=== PATIENT | female | born 1995 | race African-American/Black ===

== ENCOUNTER 2016-06-04 19:52 | Emergency (ER) | payer OTHER ==
[2016-06-04 19:59] VITALS: BP 122/75; PULSE 98; TEMP 97.7; BMI 19.6
--- NOTE | 2016-06-04 20:38 | PDOC ---
History of Present Illness - General Chief Complaint: Ear Problem Stated Complaint: EAR PROBLEM Time Seen by Provider: 06/04/16 20:03 History Source: Patient Exam Limitations: No Limitations - History of Present Illness Initial Comments: 06/04/16 20:38 CHIEF COMPLAINT: Ear pain HISTORY OF PRESENT ILLNESS: This is an otherwise healthy 20 year old female who presents for evaluation of three days of bilateral ear pain and decreased hearing. She has an appointment with ENT tomorrow, but the pain was bothering her too much for her to wait. She denies fevers/chills, headache, nausea/ vomiting, or any other symptoms. She has not taken anything for the pain. REVIEW OF SYSTEMS: GENERAL/CONSTITUTIONAL: No fever or chills. No weakness. No weight change. HEAD, EYES, EARS, NOSE AND THROAT: See HPI. CARDIOVASCULAR: No chest pain or palpitations. RESPIRATORY: No cough, wheezing, or shortness of breath. GASTROINTESTINAL: No nausea, vomiting, diarrhea or constipation. GENITOURINARY: No dysuria, frequency, or change in urination. MUSCULOSKELETAL: No joint or muscle swelling or pain. No neck or back pain. SKIN: No rash or easy bruising. NEUROLOGIC: No headache, vertigo, loss of consciousness, or loss of sensation. ALLERGIC/IMMUNOLOGIC: No hives or skin allergy. No latex allergy. PHYSICAL EXAM: GENERAL: The patient is awake, alert, and fully oriented, in no acute distress. ENT: Pupils equal, round and reactive to light, extraocular movements intact, sclera anicteric, conjunctiva clear. Neck supple. TMs pearly mcmillan with good light reflex. No cerumen impaction. Nasal congestion/rhinorrhea. LUNGS: Clear to auscultation bilaterally. Normal excursion. No respiratory distress or use of accessory muscles. CV: RRR, S1/S2, no MRG. Cap refill < 2 sec. ABDOMEN: Soft, non-distended, non-tender. EXTREMITIES: Normal range of motion, no edema. NEUROLOGICAL: Normal speech, normal gait. CN II-XII grossly intact. PSYCH: Normal mood, normal affect. SKIN: Warm, dry, normal turgor, no rashes or lesions noted. Past History - Past Medical History Allergies/Adverse Reactions: Allergies Allergy/AdvReac Type Severity Reaction Status Date / Time No Known Allergies Allergy Verified 06/04/16 19:56 Home Medications: Ambulatory Orders Albuterol Sulfate Inhaler - [Ventolin Hfa Inhaler -] 1 - 2 inh PO PRN PRN #1 inh 01/04/15 Pseudoephedrine HCl [Sudafed] 60 mg PO Q6H #15 tablet 06/04/16 Asthma: Yes Suicide Attempt (Hx): No Other medical history: meningitis - Immunization History Immunization Up to Date: Yes - Psycho/Social/Smoking Cessation Hx Anxiety: No Suicidal Ideation: No Smoking Status: No Smoking History: Never smoked Have you smoked in the past 12 months: No Number of Cigarettes Smoked Daily: 0 Hx Alcohol Use: No Drug/Substance Use Hx: No Substance Use Type: None *Physical Exam - Vital Signs Last Vital Signs Temp Pulse Resp BP Pulse Ox 97.7 F 98 H 18 122/75 100 06/04/16 19:56 06/04/16 19:56 06/04/16 19:56 06/04/16 19:56 06/04/16 19:56 ED Treatment Course - ADDITIONAL ORDERS Additional order review: Laboratory Results 06/04/16 20:00 Urine HCG, Qual Negative Medical Decision Making - Medical Decision Making 06/10/16 09:53 A/P: 20 year old female with bilateral ear pain and congestion. -Motrin for pain -Sudafed for congestion Patient is feeling better and has ENT appointment for tomorrow. *DC/Admit/Observation/Transfer Diagnosis at time of Disposition: Acute ear pain Qualifiers: Laterality: bilateral Qualified Code(s): H92.03 - Otalgia, bilateral - Discharge Dispostion Disposition: HOME Condition at time of disposition: Stable Admit: No - Prescriptions Prescriptions: Pseudoephedrine HCl [Sudafed] 60 mg PO Q6H #15 tablet - Referrals Referrals: Keke Hoang MD [Primary Care Provider] - - Patient Instructions Printed Discharge Instructions: DI for Ear Pain-Adult Additional Instructions: -Take ibuprofen as needed for pain as well as Sudafed as prescribed for congestion -Follow up with ENT as scheduled tomorrow -Return here for any concerning symptoms
[2016-06-04] MEDS ORDERED: PSEUDOEPHEDRINE HCL 60 MG TABLET PO ONE (21:05)
[2016-06-04] MEDS ORDERED: IBUPROFEN 600 MG TABLET (FP) PO ONE ×2 (21:11→21:12)
== END 2016-06-04 21:48 | disposition home or self-care (01) ==
LOC: JERFT 19:52
DX: H92.03 Otalgia, bilateral (principal); J45.909 Unspecified asthma, uncomplicated
CPT/HCPCS: 84703; 99281-25

== ENCOUNTER 2016-07-02 20:30 | Emergency (ER) | payer OTHER ==
[2016-07-02 20:50] VITALS: TEMP 97.8; BMI 18.7
[2016-07-02] MEDS ORDERED: SODIUM CHLORIDE 1,000 ML IV STA ×2 (21:21→23:29)
[2016-07-02] MEDS ORDERED: MAG HYDROX/AL HYDROX/SIMETH 30 ML UNIT-DOSE CUP PO ONE (21:30)
[2016-07-02] MEDS ORDERED: ONDANSETRON 4 MG/2 ML VIAL IVPB ONE (21:30)
[2016-07-02] MEDS ORDERED: ACETAMINOPHEN 1000 MG/100 ML VIAL (NON FORMULARY) IVPB ONE (21:30)
[2016-07-02] MEDS ORDERED: FAMOTIDINE 20 MG/50 ML IVPB 50 ML IVPB ONE ×2 (21:30→22:11)
[2016-07-02] MEDS ORDERED: ONDANSETRON 4 MG/2 ML VIAL ONE (22:06)
[2016-07-02 22:08] LABS: BASOPHIL 0.8 % (0-2.0); EOSINOPHIL 0.9 % (0-4.5); MCH 29.3 pg (25.7-33.7); MCHC 32.7 g/dl (32.0-36.0); MEAN CELL VOLUME 89.4 fl (80-96); MEAN PLT VOLUME 8.9 fl (7.5-11.1); NEUTROPHILS 61.1 % (42.8-82.8); PLATELET COUNT 338 K/MM3 (134-434); RDW 13.5 % (11.6-15.6); WHITE BLOOD COUNT 6.5 K/mm3 (4.0-10.0)
[2016-07-02 22:09] LABS: URINE APPEARANCE CLEAR; URINE BILIRUBIN NEGATIVE (NEGATIVE); URINE COLOR STRAW; URINE GLUCOSE (UA) NEGATIVE (NEGATIVE); URINE KETONE 1+ (NEGATIVE); URINE NITRITE NEGATIVE (NEGATIVE); URINE PROTEIN NEGATIVE (NEGATIVE); URINE UROBILINOGEN NEGATIVE E.U./dl (0.2-1.0)
[2016-07-02] MEDS ORDERED: ACETAMINOPHEN INJECTION 100 ML IVPB ONE (22:11)
--- NOTE | 2016-07-02 22:16 | PDOC ---
History of Present Illness - General History Source: Patient, Family Exam Limitations: No Limitations - History of Present Illness Initial Comments: 07/02/16 22:22 The patient is a 20 year old female, with a significant past medical history of asthma and meningitis, who presents to the emergency department with abdominal pain, nausea vomiting that started today and constipation that began 3 days ago. She describes her abdominal pain as constant and localized around the umbilical region, ranging from mild to moderate, without radiation or modifying factors. She notes that her vomiting is nonbilious and nonbloody. She reports that her last bowel movement was 3 days ago. She states that she is sexually active and uses condoms for contraception. The patient had recent surgery on her right ankle for bone growth, and has been taking Percocet, ibuprofen and benadryl post-opt for the pain. The patient denies chest pain, shortness of breath, headache and dizziness. Denies fever, chills and diarrhea. Denies dysuria, frequency, urgency and hematuria. LMP: 06/12/2016 Allergies: None Past surgical history: Right knee surgery (Right sided DKA) Social history: No alcohol, tobacco or drug use reported <Bk Gutierrez - Last Filed: 07/02/16 22:22> - General History Source: Patient, Parent(s) Exam Limitations: No Limitations <Anurag Fontenot - Last Filed: 07/03/16 01:03> - General Chief Complaint: Pain, Acute Stated Complaint: STOMACH PAIN,VOMITTING Time Seen by Provider: 07/02/16 20:57 Past History <Bk Gutierrez - Last Filed: 07/02/16 22:22> - Past Medical History Asthma: Yes Suicide Attempt (Hx): No - Immunization History Immunization Up to Date: Yes - Psycho/Social/Smoking Cessation Hx Anxiety: No Suicidal Ideation: No Smoking Status: No Smoking History: Never smoked Have you smoked in the past 12 months: No Number of Cigarettes Smoked Daily: 0 Hx Alcohol Use: No Drug/Substance Use Hx: No Substance Use Type: None <Anurag Fontenot - Last Filed: 07/03/16 01:03> - Past Medical History Allergies/Adverse Reactions: Allergies Allergy/AdvReac Type Severity Reaction Status Date / Time No Known Allergies Allergy Verified 07/02/16 20:51 Home Medications: Ambulatory Orders Albuterol Sulfate Inhaler - [Ventolin Hfa Inhaler -] 1 - 2 inh PO PRN PRN #1 inh 01/04/15 Diphenhydramine HCl [Benadryl -] 25 mg PO Q6H 07/02/16 Hydromorphone [Dilaudid -] 4 mg PO Q6H PRN 07/02/16 Oxycodone HCl/Acetaminophen [Percocet 5-325 mg Tablet] 1 tab PO Q6H PRN Acetaminophen [Tylenol] 650 mg PO Q4H PRN #20 tablet 07/03/16 Mag Hydrox/Al Hydrox/Simeth [Mylanta Suspension -] 30 ml PO Q6H PRN #1 bottle Ondansetron HCl [Zofran] 4 mg PO Q6H PRN #15 tablet 07/03/16 Ranitidine HCl [Zantac] 150 mg PO BID PRN #14 tablet 07/03/16 Review of Systems - Review of Systems Able to Perform ROS?: Yes Comments:: 07/02/16 22:22 GENERAL/CONSTITUTIONAL: No fever or chills. No weakness. HEAD, EYES, EARS, NOSE AND THROAT: No change in vision. No ear pain or discharge. No sore throat. CARDIOVASCULAR: No chest pain or shortness of breath RESPIRATORY: No cough, wheezing, or hemoptysis. GASTROINTESTINAL: +Abdominal pain, nausea, vomiting and constipation. No diarrhea GENITOURINARY: No dysuria, frequency, or change in urination. MUSCULOSKELETAL: No joint or muscle swelling or pain. No neck or back pain. SKIN: No rash NEUROLOGIC: No headache, vertigo, loss of consciousness, or change in strength/ sensation. ENDOCRINE: No increased thirst. No abnormal weight change HEMATOLOGIC/LYMPHATIC: No anemia, easy bleeding, or history of blood clots. ALLERGIC/IMMUNOLOGIC: No hives or skin allergy. <Bk Gutierrez - Last Filed: 07/02/16 22:22> *Physical Exam - Vital Signs Last Vital Signs Temp Pulse Resp BP Pulse Ox 97.8 F 116 H 18 121/69 96 07/02/16 20:48 07/02/16 20:48 07/02/16 20:48 07/02/16 20:48 07/02/16 20:48 - Physical Exam Comments: 07/02/16 22:22 GENERAL: Awake, alert, and fully oriented, in no acute distress HEAD: No signs of trauma, normocephalic, atraumatic EYES: PERRLA, EOMI, sclera anicteric, conjunctiva clear ENT: Auricles normal inspection, hearing grossly normal, nares patent, oropharynx clear without exudates. Moist mucosa NECK: Normal ROM, supple, no lymphadenopathy, JVD, or masses LUNGS: No distress, speaks full sentences, clear to auscultation bilaterally HEART: Regular rate and rhythm, normal S1 and S2, no murmurs, rubs or gallops, peripheral pulses normal and equal bilaterally. ABDOMEN: +Tenderness in the epigastric, murphys sign negative. Soft, normoactive bowel sounds. No guarding, no rebound. No masses EXTREMITIES: +Right sided DKA. Normal inspection, Normal range of motion, no edema. No clubbing or cyanosis. NEUROLOGICAL: Cranial nerves II through XII grossly intact. Normal speech, normal gait, no focal sensorimotor deficits SKIN: Warm, Dry, normal turgor, no rashes or lesions noted. <Bk Gutierrez - Last Filed: 07/02/16 22:22> - Vital Signs Last Vital Signs Temp Pulse Resp BP Pulse Ox 97.8 F 116 H 18 121/69 96 07/02/16 20:48 07/02/16 20:48 07/02/16 20:48 07/02/16 20:48 07/02/16 20:48 <Anurag Fontenot - Last Filed: 07/03/16 01:03> ED Treatment Course - LABORATORY CBC & Chemistry Diagram: 07/02/16 22:00 07/02/16 22:00 - ADDITIONAL ORDERS Additional order review: Laboratory Results 07/02/16 22:00 Urine Color Straw Urine Appearance Clear Urine pH 8.0 Ur Specific [place] 1.014 Urine Protein Negative Urine Glucose (UA) Negative Urine Ketones 1+ H Urine Blood 1+ H Urine Nitrite Negative Urine Bilirubin Negative Urine Urobilinogen Negative Ur Leukocyte Esterase Trace H Urine RBC 4 Urine WBC 6 Ur Epithelial Cells Rare Urine Mucus Rare 07/02/16 22:00 RBC 4.33 MCV 89.4 MCHC 32.7 RDW 13.5 MPV 8.9 Neutrophils % 61.1 D Lymphocytes % 29.9 D Monocytes % 7.3 Eosinophils % 0.9 Basophils % 0.8 - Medications Given in the ED: ED Medications Discontinued Medications Generic Name Dose Route Start Last Admin Trade Name Parth PRN Reason Stop Dose Admin Acetaminophen 1,000 mg 07/02/16 21:30 07/02/16 22:21 Ofirmev Injection - IVPB 07/02/16 21:31 1,000 mg ONCE ONE Administration Sodium Chloride 1,000 mls @ 1,000 mls/hr 07/02/16 21:21 07/02/16 22:21 Normal Saline - IV 07/02/16 22:20 1,000 mls/hr ASDIR STA Administration Famotidine/Sodium Chloride 50 mls @ 100 mls/hr 07/02/16 21:30 07/02/16 22:21 Pepcid 20 Mg Premixed Ivpb - IVPB 07/02/16 21:59 100 mls/hr ONCE ONE Administration Ondansetron HCl 4 mg 07/02/16 21:30 07/02/16 22:21 Zofran Injection IVPB 07/02/16 21:31 4 mg ONCE ONE Administration <Bk Gutierrez - Last Filed: 07/02/16 22:22> - LABORATORY CBC & Chemistry Diagram: 07/02/16 22:00 07/02/16 23:44 - ADDITIONAL ORDERS Additional order review: 07/02/16 22:00 RBC 4.33 MCV 89.4 MCHC 32.7 RDW 13.5 MPV 8.9 Neutrophils % 61.1 D Lymphocytes % 29.9 D Monocytes % 7.3 Eosinophils % 0.9 Basophils % 0.8 <Anurag Fontenot - Last Filed: 07/03/16 01:03> Medical Decision Making - Medical Decision Making 07/02/16 22:13 A portion of this note was documented by scribe services under my direction. I have reviewed the details of the note, within reason, and agree with the documentation with the following case summary and management plan written by me. Patient treated in the ED. Nursing notes are reviewed and incorporated into the medical decision-making. Vital signs reviewed. Peripheral IV access obtained by the nurse, laboratory studies are drawn and sent, reviewed and interpreted by myself. Vital Signs Temp Pulse Resp BP Pulse Ox 97.8 F 116 H 18 121/69 96 07/02/16 20:48 07/02/16 20:48 07/02/16 20:48 07/02/16 20:48 07/02/16 20:48 20 year old female with history of R BKA, multiple RLE osteotomy, last OR visit 5 days ago c/ no complications p/w likely food poisoning today. Patient ate some ice cream in the afternoon and subsequently developed epigastric discomfort with several episodes of vomiting. Denies diarrhea or sick contacts. Patient had taken a tablet of percocet (from which she had from surgery) which improved the pain drastically. The patient has NO RUQ pain or RLQ pain. I suspect that the patient has food poisoning. Labs, IVF, medications and reassess. 07/03/16 00:56 CBC, BMP 07/02/16 22:00 07/02/16 23:44 CMP Sodium 140 mmol/L (136-145) 07/02/16 23:44 Potassium 4.2 mmol/L (3.5-5.1) 07/02/16 23:44 Chloride 104 mmol/L (98-107) 07/02/16 23:44 Carbon Dioxide 26 mmol/L (21-32) 07/02/16 23:44 Anion Gap 10 (8-16) 07/02/16 23:44 BUN 9 mg/dL (7-18) D 07/02/16 23:44 Creatinine 0.5 mg/dL (0.55-1.02) L 07/02/16 23:44 Creat Clearance w eGFR > 60 (>60) 07/02/16 23:44 Random Glucose 82 mg/dL (74-106) 07/02/16 23:44 Calcium 8.6 mg/dL (8.5-10.1) 07/02/16 23:44 Total Bilirubin 0.3 mg/dL (0.2-1.0) D 07/02/16 23:44 AST 18 U/L (15-37) D 07/02/16 23:44 ALT 17 U/L (12-78) 07/02/16 23:44 Alkaline Phosphatase 62 U/L (45-117) 07/02/16 23:44 Total Protein 6.9 g/dl (6.4-8.2) 07/02/16 23:44 Albumin 3.3 g/dl (3.4-5.0) L 07/02/16 23:44 Lipase 52 U/L (73-393) L 07/02/16 23:44 Urine Test Results Urine Color Straw 07/02/16 22:00 Urine Appearance Clear 07/02/16 22:00 Urine pH 8.0 (5.0-8.0) 07/02/16 22:00 Ur Specific [place] 1.014 (1.001-1.035) 07/02/16 22:00 Urine Protein Negative (NEGATIVE) 07/02/16 22:00 Urine Glucose (UA) Negative (NEGATIVE) 07/02/16 22:00 Urine Ketones 1+ (NEGATIVE) H 07/02/16 22:00 Urine Blood 1+ (NEGATIVE) H 07/02/16 22:00 Urine Nitrite Negative (NEGATIVE) 07/02/16 22:00 Urine Bilirubin Negative (NEGATIVE) 07/02/16 22:00 Ur Leukocyte Esterase Trace (NEGATIVE) H 07/02/16 22:00 Urine RBC 4 /hpf (0-3) 07/02/16 22:00 Urine WBC 6 /hpf (3-5) 07/02/16 22:00 Ur Epithelial Cells Rare /hpf (FEW) 07/02/16 22:00 Urine Mucus Rare 07/02/16 22:00 07/03/16 00:57 Urine test negative. The patient reports feeling better. I suspect that this is food poisoning. Supportive care. I discussed the physical exam findings, ancillary test results and final diagnoses with the patient. I answered all of the patient's questions. The patient was satisfied with the care received and felt comfortable with the discharge plan and treatment plan. The patient will call their primary care physician within 24 hours to arrange follow-up and will return to the Emergency Department with any new, persistant or worsening symptoms. <Anurag Fontenot - Last Filed: 07/03/16 01:03> *DC/Admit/Observation/Transfer - Attestations Scribe Attestion: 07/02/16 22:22 Documentation prepared by Bk Gutierrez, acting as medical transcriber for Anurag Fontenot MD. <Bk Gutierrez - Last Filed: 07/02/16 22:22> - Discharge Dispostion Admit: No <Anurag Fontenot - Last Filed: 02/02/17 01:03> Diagnosis at time of Disposition: Food poisoning Qualifiers: Encounter type: initial encounter Injury intent: accidental or unintentional Qualified Code(s): T62.91XA - Toxic effect of unspecified noxious substance eaten as food, accidental (unintentional), initial encounter - Discharge Dispostion Disposition: HOME Condition at time of disposition: Improved - Prescriptions Prescriptions: Mag Hydrox/Al Hydrox/Simeth [Mylanta Suspension -] 30 ml PO Q6H PRN #1 bottle PRN Reason: Abdominal Pain Acetaminophen [Tylenol] 650 mg PO Q4H PRN #20 tablet PRN Reason: Pain Ranitidine HCl [Zantac] 150 mg PO BID PRN #14 tablet PRN Reason: Abdominal Pain Ondansetron HCl [Zofran] 4 mg PO Q6H PRN #15 tablet PRN Reason: Nausea - Referrals Referrals: Keke Hoang MD [Primary Care Provider] - - Patient Instructions Printed Discharge Instructions: DI for Food Poisoning Additional Instructions: Take the medications as prescribed. Drink plenty of fluids and follow up. It may take several days before it gets better.
[2016-07-02 22:19] LABS: URINE BLOOD 1+ (NEGATIVE); URINE LEUK ESTERASE TRACE (NEGATIVE)
[2016-07-02 22:20] LABS: URINE MUCUS RARE; URINE RBC 4 /hpf (0-3); URINE WBC 6 /hpf (3-5)
[2016-07-02] MEDS ORDERED: MAG HYDROX/AL HYDROX/SIMETH 30 ML UNIT-DOSE CUP ONE (22:47)
[2016-07-03] MEDS ORDERED: KETOROLAC TROMETHAMINE 30 MG/1 ML VIAL IVPUSH ONE (00:18)
[2016-07-03 00:20] LABS: ALBUMIN 3.3 g/dl (3.4-5.0); ANION GAP 10 (8-16); BILIRUBIN,TOTAL 0.3 mg/dL (0.2-1.0); CALCIUM 8.6 mg/dL (8.5-10.1); CO2 26 mmol/L (21-32); CREATININE 0.5 mg/dL (0.55-1.02); GLUCOSE,RANDOM 82 mg/dL (74-106); SGOT/AST 18 U/L (15-37); SGPT/ALT 17 U/L (12-78); TOT PROT 6.9 g/dl (6.4-8.2)
[2016-07-03 00:21] LABS: ALK PHOS 62 U/L (45-117)
[2016-07-03 01:13] VITALS: BP 110/70; PULSE 92
== END 2016-07-03 01:12 | disposition home or self-care (01) ==
LOC: JER 20:30
DX: T62.91XA Toxic effect of unspecified noxious substance eaten as food, accidental (unintentional), initial encounter (principal); J45.909 Unspecified asthma, uncomplicated; Z86.61 Personal history of infections of the central nervous system
CPT/HCPCS: 36415; 80053; 81003; 81015; 83690; 84703; 85025; 87086; 99284-25

== ENCOUNTER 2016-09-21 18:32 | Emergency (ER) | payer OTHER ==
[2016-09-21 18:45] VITALS: BP 132/68; PULSE 99; TEMP 97.8; BMI 20.4
--- NOTE | 2016-09-21 19:06 | PDOC ---
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 The patient reports she had right knee surgery in June (3 months ago). She has been having pain to her right knee ever since and has not been able to wear her right leg prosthesis secondary to the pain. She states her Orthopedic surgeon told her she should be able to bear weight and use her prosthesis but she is still unable to. She reports the pain for the past hour is more severe than the pain she has on a daily basis. The mother reports her right leg has appeared to be swollen when compared to the left. The patient denies fever, chills, nausea, vomiting. Orthopedist: Dr. Cisse <Geneva Ruffin - Last Filed: 09/21/16 21:53> <Ida Jameson - Last Filed: 09/21/16 22:04> - General Chief Complaint: Pain Stated Complaint: PAIN Time Seen by Provider: 09/21/16 18:48 Past History <Geneva Ruffin - Last Filed: 09/21/16 21:53> - Past Medical History Asthma: Yes Suicide Attempt (Hx): No - Immunization History Immunization Up to Date: Yes - Psycho/Social/Smoking Cessation Hx Anxiety: No Suicidal Ideation: No Smoking Status: No Smoking History: Never smoked Have you smoked in the past 12 months: No Number of Cigarettes Smoked Daily: 0 Information on smoking cessation initiated: No Hx Alcohol Use: No Drug/Substance Use Hx: No Substance Use Type: None <Ida Jameson - Last Filed: 09/21/16 22:04> - Past Medical History Allergies/Adverse Reactions: Allergies Allergy/AdvReac Type Severity Reaction Status Date / Time No Known Allergies Allergy Verified 07/02/16 20:51 Home Medications: Ambulatory Orders Albuterol Sulfate Inhaler - [Ventolin Hfa Inhaler -] 1 - 2 inh PO PRN PRN #1 inh 01/04/15 Naproxen [Naprosyn -] 500 mg PO BID #14 tablet 09/21/16 Review of Systems - Review of Systems Able to Perform ROS?: Yes Comments:: 09/21/16 19:25 CONSTITUTIONAL: Absent: fever, chills, diaphoresis, generalized weakness, malaise, loss of appetite HEENT: Absent: rhinorrhea, nasal congestion, throat pain, throat swelling, difficulty swallowing, mouth swelling, ear pain, eye pain, visual Changes CARDIOVASCULAR: Absent: chest pain, syncope, palpitations, irregular heart rate, lightheadedness , peripheral edema RESPIRATORY: Absent: cough, shortness of breath, dyspnea with exertion, orthopnea, wheezing, stridor, hemoptysis GASTROINTESTINAL: Absent: abdominal pain, abdominal distension, nausea, vomiting, diarrhea, constipation, melena, hematochezia GENITOURINARY: Absent: dysuria, frequency, urgency, hesitancy, hematuria, flank pain, genital pain MUSCULOSKELETAL: +Right knee pain, right knee swelling. Absent: back pain, neck pain SKIN: Absent: rash, itching, pallor NEUROLOGIC: Absent: headache, focal weakness or paresthesias, dizziness, unsteady gait, seizure, mental status changes, bladder or bowel incontinence PSYCHIATRIC: Absent: anxiety, depression, suicidal or homicidal ideation, hallucinations. <Geneva Ruffin - Last Filed: 09/21/16 21:53> *Physical Exam - Vital Signs Last Vital Signs Temp Pulse Resp BP Pulse Ox 97.8 F 99 H 20 132/68 100 09/21/16 18:42 09/21/16 18:42 09/21/16 18:42 09/21/16 18:42 09/21/16 18:42 - Physical Exam Comments: 09/21/16 19:25 GENERAL: Well developed, well nourished. Awake and alert. No acute distress. HEENT: Normocephalic, atraumatic. PERRLA, EOMI. No conjunctival pallor. Sclera are non- icteric. Moist mucous membranes. Oropharynx is clear. NECK: Supple. Full ROM. No JVD. Carotid pulses 2+ and symmetric, without bruits. No thyromegaly. No lymphadenopathy. CARDIOVASCULAR: Regular rate and rhythm. No murmurs, rubs, or gallops. Distal pulses are 2+ and symmetric. PULMONARY: No evidence of respiratory distress. Lungs clear to auscultation bilaterally. No wheezing, rales or rhonchi. ABDOMINAL: Soft. Non-tender. Non-distended. No rebound or guarding. No organomegaly. Normoactive bowel sounds. MUSCULOSKELETAL No CVA tenderness. EXTREMITIES: +Bilateral below the knee amputations. Right patellar ballottement. No cyanosis. No clubbing. SKIN: Warm and dry. Normal capillary refill. No rashes. No jaundice. NEUROLOGICAL: Alert, awake, appropriate. Cranial nerves 2-12 intact. No deficits to light touch and temperature in face, upper extremities and lower extremities. PSYCHIATRIC: Cooperative. Good eye contact. Appropriate mood and affect. <Geneva Ruffin - Last Filed: 09/21/16 21:53> - Vital Signs Last Vital Signs Temp Pulse Resp BP Pulse Ox 97.8 F 99 H 20 132/68 100 09/21/16 18:42 09/21/16 18:42 09/21/16 18:42 09/21/16 18:42 09/21/16 18:42 <Ida Jameson - Last Filed: 09/21/16 22:04> ED Treatment Course - LABORATORY CBC & Chemistry Diagram: 09/21/16 19:18 09/21/16 19:18 <Geneva Ruffin - Last Filed: 09/21/16 21:53> - LABORATORY CBC & Chemistry Diagram: 09/21/16 19:18 09/21/16 19:18 <Ida Jameson - Last Filed: 09/21/16 22:04> Medical Decision Making - Medical Decision Making 09/21/16 21:[address] Cisse via answering service, awaiting call back. 09/21/16 21:53 Dr. Cisse called back, the patients case was discussed. <Geneva Ruffin - Last Filed: 09/21/16 21:53> *DC/Admit/Observation/Transfer - Attestations Scribe Attestion: 09/21/16 19:24 Documentation prepared by Geneva Ruffin, acting as medical chief technician for Ida Jameson MD/. <Geneva Ruffin - Last Filed: 09/21/16 21:53> <Ida Jameson - Last Filed: 09/21/16 22:04> Diagnosis at time of Disposition: Right knee pain Qualifiers: Chronicity: chronic Qualified Code(s): M25.561 - Pain in right knee - Discharge Dispostion Disposition: HOME Condition at time of disposition: Stable - Prescriptions Prescriptions: Naproxen [Naprosyn -] 500 mg PO BID #14 tablet - Referrals Referrals: Keke Hoang MD [Primary Care Provider] - - Patient Instructions Printed Discharge Instructions: DI for Knee Pain Additional Instructions: Please see your orthopedist Dr Benny Cisse tomorrow and follow up with him in his office 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
[2016-09-21] MEDS ORDERED: KETOROLAC TROMETHAMINE 60 MG/2 ML VIAL IM ONE (19:11)
[2016-09-21] MEDS ORDERED: KETOROLAC TROMETHAMINE 60 MG/2 ML VIAL ONE (19:14)
[2016-09-21 19:24] LABS: BASOPHIL 0.5 % (0-2.0); EOSINOPHIL 1.4 % (0-4.5); MCH 29.3 pg (25.7-33.7); MCHC 32.8 g/dl (32.0-36.0); MEAN CELL VOLUME 89.3 fl (80-96); MEAN PLT VOLUME 8.5 fl (7.5-11.1); PLATELET COUNT 316 K/MM3 (134-434); RDW 13.4 % (11.6-15.6); WHITE BLOOD COUNT 6.4 K/mm3 (4.0-10.0)
[2016-09-21] MEDS ORDERED: OXYCODONE/APAP 5/325MG COMBO TABLET PO ONE (19:29)
[2016-09-21] MEDS ORDERED: OXYCODONE/APAP 5/325MG COMBO TABLET ONE (19:32)
[2016-09-21 19:48] LABS: ALBUMIN 3.8 g/dl (3.4-5.0); ANION GAP 10 (8-16); BILIRUBIN,TOTAL 0.2 mg/dL (0.2-1.0); CALCIUM 8.5 mg/dL (8.5-10.1); CO2 27 mmol/L (21-32); COCKROFT - GAULT 138.7965; CREATININE 0.5 mg/dL (0.55-1.02); GLUCOSE,RANDOM 91 mg/dL (74-106); SGOT/AST 10 U/L (15-37); SGPT/ALT 18 U/L (12-78); TOT PROT 7.6 g/dl (6.4-8.2)
[2016-09-21 19:49] LABS: ALK PHOS 74 U/L (45-117)
[2016-09-21 20:16] LABS: URINE APPEARANCE CLEAR; URINE BILIRUBIN NEGATIVE (NEGATIVE); URINE COLOR STRAW; URINE GLUCOSE (UA) NEGATIVE (NEGATIVE); URINE KETONE NEGATIVE (NEGATIVE); URINE NITRITE NEGATIVE (NEGATIVE); URINE PROTEIN NEGATIVE (NEGATIVE); URINE UROBILINOGEN NEGATIVE E.U./dl (0.2-1.0)
[2016-09-21 20:20] LABS: URINE BLOOD 3+ (NEGATIVE); URINE LEUK ESTERASE TRACE (NEGATIVE)
[2016-09-21 20:21] LABS: URINE RBC 1 /hpf (0-3); URINE WBC 5 /hpf (3-5)
== END 2016-09-21 22:05 | disposition home or self-care (01) ==
LOC: JER 18:32
PROC: 3E0233Z Introduction of Anti-inflammatory into Muscle, Percutaneous Approach (ICD-10-PCS; principal; 2016-09-21)
DX: G89.28 Other chronic postprocedural pain (principal); Z89.512 Acquired absence of left leg below knee; Z89.511 Acquired absence of right leg below knee
CPT/HCPCS: 36415; 73562-TC-RT; 80053; 81003; 81015; 84703; 85025; 96372; 99282-25

== ENCOUNTER 2016-09-24 12:02 | Emergency (ER) | payer OTHER ==
[2016-09-24 12:20] VITALS: BP 127/85; TEMP 98.3; BMI 23.0
--- NOTE | 2016-09-24 12:23 | PDOC ---
History of Present Illness - General History Source: Patient, Parent(s), Family Exam Limitations: No Limitations - History of Present Illness Initial Comments: 09/24/16 12:29 The patient is a 20-year-old woman, accompanied by mother, with a significant past medical history of meningitis (as a 7-month-old); complicated by bilateral below the knee amputations) and mild intermittent asthma (required hospitalizations as a child) who presents to the emergency department via EMS for further evaluation of nausea, vomiting and diarrhea within the pats 24 hours. Her symptoms started approximately 2-3 days ago, with generalized body aches with associated chills. She ultimately developed chest congestion and was evaluated by her PMD, who diagnosed her with an upper respiratory infection and she was started on a Azythromycin (first dose started yesterday). She now reports experiencing nausea, vomiting, diarrhea with associated intermittent abdominal cramping and chest tightness. She was given a Nebulizer treatment en route to the ED, which helped mildly alleviate her chest tightness. She admits that a cold and seasonal changes, can exacerbated her asthma (last asthma exacerbation was 3 months ago; no hospitalizations;intubations). No fever, weakness No lightheadedness, dizziness, headaches, visual chnages, neck pain No urinary complaints No shortness of breath Allergies: No Known Drug Allergies Past Surgical History: Bilateral BKA Social History: Never smoked. No ETOH and recreational drug use. Primary Care Physician: Keke Plaza W[employer] MAIN INSPECTOR <Beatrice Vee - Last Filed: 09/24/16 13:08> <Merrick Castillo - Last Filed: 09/24/16 15:13> - General Chief Complaint: Nausea/Vomiting Stated Complaint: Shortness of Breath Time Seen by Provider: 09/24/16 12:18 Past History <Beatrice Vee - Last Filed: 09/24/16 13:08> - Past Medical History Asthma: Yes Suicide Attempt (Hx): No - Immunization History Immunization Up to Date: Yes - Psycho/Social/Smoking Cessation Hx Anxiety: No Suicidal Ideation: No Smoking Status: No Smoking History: Never smoked Have you smoked in the past 12 months: No Number of Cigarettes Smoked Daily: 0 Information on smoking cessation initiated: No Hx Alcohol Use: No Drug/Substance Use Hx: No Substance Use Type: None <Merrick Castillo - Last Filed: 09/24/16 15:13> - Past Medical History Allergies/Adverse Reactions: Allergies Allergy/AdvReac Type Severity Reaction Status Date / Time No Known Allergies Allergy Verified 07/02/16 20:51 Home Medications: Ambulatory Orders Methylprednisolone [Medrol Dose Reggie] 4 mg PO ASDIR #21 tablet 09/24/16 Ondansetron [Zofran *Odt*] 8 mg SL BID PRN #10 od.tablet 09/24/16 Review of Systems - Review of Systems Constitutional: Yes: Chills. No: Fever HEENTM: No: Nose Congestion Respiratory: Yes: Cough, Shortness of Breath Cardiac (ROS): Yes: Chest Pain ABD/GI: Yes: Diarrhea, Nausea, Vomiting : No: Dysuria Integumentary: No: Rash All Other Systems: Reviewed and Negative <Merrick Castillo - Last Filed: 09/24/16 15:13> *Physical Exam - Vital Signs Last Vital Signs Temp Pulse Resp BP Pulse Ox 98.3 F 88 16 127/85 99 09/24/16 12:17 09/24/16 12:17 09/24/16 12:17 09/24/16 12:17 09/24/16 12:17 - Physical Exam Comments: 09/24/16 12:30 GENERAL: The patient is awake, alert, and fully oriented, in no acute distress. HEAD: Normal with no signs of trauma. EYES: Pupils equal, round and reactive to light, extraocular movements intact, sclera anicteric, conjunctiva clear with no pallor. ENT: Ears normal, nares patent, oropharynx clear without exudates. Moist mucous membranes. NECK: Normal range of motion, supple without lymphadenopathy, JVD, or masses. LUNGS: Breath sounds equal, clear to auscultation bilaterally. No wheeze/ crackles. HEART: Regular rate and rhythm, normal S1 and S2 without murmur or rub. ABDOMEN: Soft/nontender/nondistended. BS wnl. No guarding or rebound. No palpable masses. No hepatosplenomegaly. EXTREMITIES: Bilateral BKA with prosthetics in place. NEUROLOGICAL: Cranial nerves II through XII grossly intact. Normal speech. PSYCH: Normal mood, normal affect. SKIN: Warm, Dry, normal turgor, no rashes or lesions noted. <MariuszBeatrice - Last Filed: 09/24/16 13:08> - Vital Signs Last Vital Signs Temp Pulse Resp BP Pulse Ox 98.3 F 88 16 127/85 99 09/24/16 12:17 09/24/16 12:17 09/24/16 12:17 09/24/16 12:17 09/24/16 12:17 <Merrick Castillo - Last Filed: 09/24/16 15:13> Heart Score/ECG Review #1 ECG reviewed & interpreted by me at: 13:27 General ECG Interpretation: Sinus Rhythm (sinus arrhythmia v. APC), Normal Rate (74), Normal Intervals (qtc 432), No acute ischemic changes Compared to previous ECG there are: No significant change (c/w 02/04/16) <Merrick Castillo - Last Filed: 09/24/16 15:13> ED Treatment Course - LABORATORY CBC & Chemistry Diagram: 09/24/16 12:55 09/24/16 12:55 <MariuszBeatrice - Last Filed: 09/24/16 13:08> - LABORATORY CBC & Chemistry Diagram: 09/24/16 12:55 09/24/16 12:55 <Merrick Castillo - Last Filed: 09/24/16 15:13> Medical Decision Making - Medical Decision Making 09/24/16 12:40 A portion of this note was documented by scribe services under my direction. I have reviewed the details of the note, within reason, and agree with the documentation with the following case summary and management plan written by me. 20-year-old female with history of meningitis as a 7-month-old, complicated by bilateral BKA, otherwise healthy with mild intermittent asthma presents with nausea/vomiting/diarrhea over the last 24 hours in the setting of asthma exacerbation in the setting of viral syndrome. Began with body aches and chills 48 hours ago, started developing chest congestion for which her primary physician prescribed azithromycin, first dose yesterday. Now with nonbloody/ nonbilious vomiting and diarrhea without persistent abdominal pain. No recent travel, no sick contacts, no diet change. Vital signs as noted. Well-appearing, seated up in stretcher, speaking full sentences. Symmetric breath sounds without wheezing or accessory muscle use or prolonged expiration. Status post nebulizer by EMS. Abdomen is soft/nontender/nondistended. Bilateral BKA with prosthetics in place Healthy 20-year-old female with likely viral syndrome resulting in mild asthma exacerbation and now likely gastroenteritis. No red flags on history or physical exam, her abdominal exam is benign. Will check basic labs and urine Chest x-ray Declines nebulizers, has no respiratory distress at this time IV fluid hydration, antiemetics, antacid Reassess 09/24/16 13:40 Labs are within normal limits, no leukocytosis, normal lipase and LFTs. Awaiting urine for chest x-ray, feels better after meds. 09/24/16 15:09 Chest x-ray consistent with asthma, no infiltrate to suggest pneumonia. Patient feels well, ambulating comfortably, tolerating by mouth, wants to go home. Mom at bedside, they understand return criteria. <Merrick Castillo - Last Filed: 09/24/16 15:13> *DC/Admit/Observation/Transfer - Attestations Scribe Attestion: 09/24/16 12:30 Documentation prepared by Beatrice Vee, acting as medical economics consultant for Merrick Castillo MD. <Beatrice Vee - Last Filed: 09/24/16 13:08> <Merrick Castillo - Last Filed: 09/24/16 15:13> Diagnosis at time of Disposition: Gastroenteritis, Asthma exacerbation - Discharge Dispostion Disposition: HOME Condition at time of disposition: Improved - Prescriptions Prescriptions: Methylprednisolone [Medrol Dose Reggie] 4 mg PO ASDIR #21 tablet Ondansetron [Zofran *Odt*] 8 mg SL BID PRN #10 od.tablet PRN Reason: Nausea - Referrals Referrals: Keke Hoang MD [Primary Care Provider] - - Patient Instructions Printed Discharge Instructions: DI for Viral Gastroenteritis -- Adult, DI for Asthma -- Adult Additional Instructions: Activity as tolerated. Stay hydrated. Blood tests showed no acute abnormalities. Your vomiting/diarrhea is likely due to a viral infection. A chest xray shows no pneumonia. Speak to your primary doctor about whether he/ she really wants you on antibiotics. Take medrol dose pack as prescribed for asthma exacerbation. You should follow up with your primary doctor as soon as possible regarding today's emergency department visit. Return to the emergency department for any new or concerning symptoms, particularly persistent vomiting or diarrhea or dehydration, fevers or chills, difficulty breathing, abdominal pain.
[2016-09-24] MEDS ORDERED: ONDANSETRON 4 MG/2 ML VIAL IVPB ONE (12:34)
[2016-09-24] MEDS ORDERED: SODIUM CHLORIDE 1,000 ML IV ONE (12:34)
[2016-09-24] MEDS ORDERED: FAMOTIDINE 20 MG/50 ML IVPB 50 ML IVPB ONE ×2 (12:34→12:47)
[2016-09-24] MEDS ORDERED: ONDANSETRON 4 MG/2 ML VIAL ONE (12:47)
[2016-09-24 13:05] LABS: EOSINOPHIL 1.5 % (0-4.5); MCH 28.7 pg (25.7-33.7); MCHC 31.7 g/dl (32.0-36.0); MEAN CELL VOLUME 90.7 fl (80-96); MEAN PLT VOLUME 8.9 fl (7.5-11.1); PLATELET COUNT 303 K/MM3 (134-434); WHITE BLOOD COUNT 5.3 K/mm3 (4.0-10.0)
[2016-09-24 13:30] LABS: ALBUMIN 3.6 g/dl (3.4-5.0); ANION GAP 13 (8-16); CALCIUM 9.2 mg/dL (8.5-10.1); CO2 25 mmol/L (21-32); CREATININE 0.5 mg/dL (0.55-1.02); GLUCOSE,RANDOM 79 mg/dL (74-106); SGPT/ALT 20 U/L (12-78)
[2016-09-24 13:31] LABS: ALK PHOS 72 U/L (45-117); BILIRUBIN,TOTAL 0.4 mg/dL (0.2-1.0); TOT PROT 7.3 g/dl (6.4-8.2)
[2016-09-24 13:35] LABS: SGOT/AST 15 U/L (15-37)
[2016-09-24 15:31] VITALS: PULSE 77
--- NOTE | 2016-09-25 13:31 | EKG ---
Test Reason : Blood Pressure : / mmHG Vent. Rate : 074 BPM Atrial Rate : 074 BPM P-R Int : 174 ms QRS Dur : 092 ms QT Int : 390 ms P-R-T Axes : 065 051 008 degrees QTc Int : 432 ms SINUS RHYTHM WITH MARKED SINUS ARRHYTHMIA OTHERWISE NORMAL ECG WHEN COMPARED WITH ECG OF 04-FEB-2016 17:08, CRITERIA FOR ANTEROSEPTAL INFARCT ARE NO LONGER PRESENT Confirmed by RUSS REECE, DAVE ([id number]) on 09/25/2016 1:30:37 PM Referred By: Confirmed By:DAVE SOLANO MD
== END 2016-09-24 15:32 | disposition home or self-care (01) ==
LOC: JER 12:02
PROC: 3E033GC Introduction of Other Therapeutic Substance into Peripheral Vein, Percutaneous Approach (ICD-10-PCS; principal; 2016-09-24)
DX: J45.901 Unspecified asthma with (acute) exacerbation (principal); K52.9 Noninfective gastroenteritis and colitis, unspecified; Z89.512 Acquired absence of left leg below knee; Z89.511 Acquired absence of right leg below knee; Z86.61 Personal history of infections of the central nervous system
CPT/HCPCS: 36415; 71020-TC; 80053; 83690; 84703; 85025; 93005; 93010; 96365; 96375; 99283-25

== ENCOUNTER 2016-12-01 13:08 | Emergency (ER) | payer OTHER ==
[2016-12-01 13:14] VITALS: TEMP 98.6
[2016-12-01 13:54] LABS: URINE APPEARANCE CLEAR; URINE BILIRUBIN NEGATIVE (NEGATIVE); URINE BLOOD NEGATIVE (NEGATIVE); URINE COLOR COLORLESS; URINE GLUCOSE (UA) NEGATIVE (NEGATIVE); URINE KETONE NEGATIVE (NEGATIVE); URINE NITRITE NEGATIVE (NEGATIVE); URINE PROTEIN NEGATIVE (NEGATIVE); URINE UROBILINOGEN NEGATIVE E.U./dl (0.2-1.0)
[2016-12-01 13:55] LABS: URINE LEUK ESTERASE TRACE (NEGATIVE)
[2016-12-01 13:56] LABS: URINE RBC <1 /hpf (0-3); URINE WBC 1 /hpf (3-5)
[2016-12-01] MEDS ORDERED: ACETAMINOPHEN 325 MG TABLET (FP) PO ONE (14:39)
--- NOTE | 2016-12-01 14:39 | PDOC ---
History of Present Illness - General Chief Complaint: Pain Stated Complaint: ABD PAIN (8 WKS ) Time Seen by Provider: 12/01/16 13:29 History Source: Patient - History of Present Illness Timing/Duration: reports: constant Quality: reports: cramping Abdominal Pain Onset Location: reports: suprapubic Past History - Past Medical History Allergies/Adverse Reactions: Allergies Allergy/AdvReac Type Severity Reaction Status Date / Time No Known Allergies Allergy Verified 12/01/16 13:09 Home Medications: Ambulatory Orders Ondansetron [Zofran *Odt*] 8 mg SL BID PRN #10 od.tablet 09/24/16 Cmb#95/Iron/FA/Dha [ + Dha Combo Pack] 1 each PO DAILY Pyridoxine HCl [Vitamin B-6] 100 mg PO DAILY 12/01/16 Asthma: Yes Suicide Attempt (Hx): No Seizures: Yes (HYPO) Other medical history: HX OF MENINGITIS AT 7 MONTH OLD - Reproductive History Is Patient Now?: Yes (#): 2 Para: 0 - Immunization History Immunization Up to Date: Yes - Psycho/Social/Smoking Cessation Hx Anxiety: No Suicidal Ideation: No Smoking Status: No Smoking History: Never smoked Have you smoked in the past 12 months: No Number of Cigarettes Smoked Daily: 0 Information on smoking cessation initiated: No Hx Alcohol Use: No Drug/Substance Use Hx: No Substance Use Type: None Review of Systems - Review of Systems Constitutional: No: Chills, Fever ABD/GI: Yes: Abdominal cramping. No: Nausea, Vomiting : No: Dysuria *Physical Exam - Vital Signs Last Vital Signs Temp Pulse Resp BP Pulse Ox 98.6 F 126 H 18 130/73 100 12/01/16 13:10 12/01/16 13:10 12/01/16 13:10 12/01/16 13:10 12/01/16 13:10 - Physical Exam General Appearance: Yes: Appropriately Dressed. No: Apparent Distress HEENT: positive: Normal Voice Neck: positive: Supple Respiratory/Chest: negative: Respiratory Distress Female Pelvic Exam: positive: normal external exam, cervical os closed, normal adnexa. negative: CMT, discharge, lesions, adnexal tenderness, vaginal bleeding Gastrointestinal/Abdominal: positive: Soft. negative: Tender Musculoskeletal: negative: CVA Tenderness Extremity: positive: Normal Inspection Integumentary: positive: Dry, Warm Neurologic: positive: Fully Oriented, Alert, Normal Mood/Affect ED Treatment Course - ADDITIONAL ORDERS Additional order review: Laboratory Results 12/01/16 13:33 Urine Color Colorless Urine Appearance Clear Urine pH 7.0 Urine Protein Negative Urine Glucose (UA) Negative Urine Ketones Negative Urine Blood Negative Urine Nitrite Negative Urine Bilirubin Negative Urine Urobilinogen Negative Ur Leukocyte Esterase Trace H Urine RBC <1 Urine WBC 1 Ur Epithelial Cells Rare - RADIOLOGY Radiology Studies Ordered: Category Date Time Status TRANSVAGINAL ULTRASOUND US [US] Stat Ultrasound 12/01/16 14:13 Ordered Medical Decision Making - Medical Decision Making 12/01/16 14:16 20 yo F, s/p b/l LE amputations 2/2 complication of meningitis in childhood, (1 elec AB), ~8 weeks and p/w lower abd pain that started today. No vag bleed or dysuria. Has not had any care, including US, as of yet See exam 1st trimester pain Stable w/ benign abd and unremarkable pelvic exam -pain control -ua/beta -US 12/01/16 14:51 12/01/16 16:31 12/01/16 16:35 +IUP at ~10 weeks w/ FHR. Ua neg for infxn. Pt stable for dc w/ OB f/u. Given report of US *DC/Admit/Observation/Transfer Diagnosis at time of Disposition: Chest pain Qualifiers: Chest pain type: unspecified Qualified Code(s): R07.9 - Chest pain, unspecified - Discharge Dispostion Disposition: HOME Condition at time of disposition: Fair Admit: Yes - Referrals Referrals: Keke Hoang MD [Primary Care Provider] - - Patient Instructions Printed Discharge Instructions: Managing Symptoms of Additional Instructions: Your ultrasound shows an intrauterine at approximately 10 weeks 5 days with a heart rate. Your beta was over 200,000 today. There are no signs of infection in your urine. Please continue to follow up with her OB
[2016-12-01] MEDS ORDERED: ACETAMINOPHEN 325 MG TABLET (FP) ONE (14:56)
[2016-12-01 16:45] VITALS: BP 115/63; PULSE 97
== END 2016-12-01 16:36 | disposition home or self-care (01) ==
LOC: JER 13:08
DX: O26.891 Other specified pregnancy related conditions, first trimester (principal); R10.30 Lower abdominal pain, unspecified; R07.9 Chest pain, unspecified; Z3A.10 10 weeks gestation of pregnancy; Z89.512 Acquired absence of left leg below knee; Z89.511 Acquired absence of right leg below knee
CPT/HCPCS: 36415; 76817-TC; 81003; 81015; 84702; 87086; 99282-25

== ENCOUNTER 2017-01-20 06:24 | Emergency (ER) | payer OTHER ==
[2017-01-20 06:39] VITALS: TEMP 97.7; BMI 18.8
[2017-01-20] MEDS ORDERED: ALBUTEROL SO4 0.042% IH SOL 1.25 MG/3 ML VIAL.NEB NEB ONE (06:57)
[2017-01-20] MEDS ORDERED: ALBUTEROL SO4 0.083% IH SOL 2.5 MG/3 ML VIAL.NEB. NEB ONE (07:00)
--- NOTE | 2017-01-20 07:06 | PDOC ---
History of Present Illness - General Chief Complaint: Shortness of Breath Stated Complaint: 4 MTHS PREG/TROUBLE BREATHING Time Seen by Provider: 01/20/17 06:35 History Source: Patient, Parent(s) (Mother) Exam Limitations: No Limitations - History of Present Illness Initial Comments: 01/20/17 06:59 21yo Female patient 16 weeks preg w/ PmHx: Asthma, hyperthyroidism, bilateral BKA presents to ED c/o difficulty breathing while sleeping. Patient states she woke up out of her sleep when symptoms began. She states she did not use her rescue inhaler because she was not sure if it is safe during . Patient denies abd pain, vaginal bleeding, dysuria, hematuria, n/v/d, rash, fever or any other complaints at this time. [employer]/OB - Chelsea Gaspar. Past History - Travel Traveled outside of the country in the last 30 days: No Close contact w/someone who was outside of country & ill: No - Past Medical History Allergies/Adverse Reactions: Allergies Allergy/AdvReac Type Severity Reaction Status Date / Time No Known Allergies Allergy Verified 01/20/17 06:32 Home Medications: Ambulatory Orders Methimazole [Tapazole -] 5 mg PO TID 01/20/17 Asthma: Yes Suicide Attempt (Hx): No Seizures: Yes (HYPO) Thyroid Disease: Yes (Hyperthyroid) - Reproductive History Is Patient Now?: Yes (states 16 weeks) (#): 1 Para: 0 Cervical CA: No Dysfunctional Uterine Bleeding: No Ectopic : No Endometrial CA: No Polycystic Ovaries: No Therapeutic (s) & number: No Tubal Ligation: No Spontaneous : 0 - Immunization History Immunization Up to Date: Yes - Psycho/Social/Smoking Cessation Hx Anxiety: No Suicidal Ideation: No Smoking Status: No Smoking History: Never smoked Have you smoked in the past 12 months: No Number of Cigarettes Smoked Daily: 0 Information on smoking cessation initiated: No Hx Alcohol Use: No Drug/Substance Use Hx: No Substance Use Type: None Review of Systems - Review of Systems Able to Perform ROS?: Yes Is the patient limited French proficient: No Respiratory: Yes: Shortness of Breath All Other Systems: Reviewed and Negative *Physical Exam - Vital Signs Last Vital Signs Temp Pulse Resp BP Pulse Ox 97.7 F 68 18 116/71 100 01/20/17 06:33 01/20/17 06:33 01/20/17 06:33 01/20/17 06:33 01/20/17 06:33 - Physical Exam General Appearance: Yes: Nourished, Appropriately Dressed. No: Apparent Distress, Mild Distress, Moderate Distress, Severe Distress HEENT: positive: EOMI, BARRY, Normal ENT Inspection, Normal Voice, Symmetrical, TMs Normal, Pharynx Normal. negative: Tonsillar Exudate, Tonsillar Erythema, Rhinorrhea, Sinus Tenderness, TM Bulging, TM Dull, TM Erythema Neck: positive: Trachea midline, Supple. negative: Stridor, Lymphadenopathy (R) , Lymphadenopathy (L) Respiratory/Chest: positive: Other (Coarse posterior lung sounds heard.). negative: Lungs Clear, Normal Breath Sounds, Respiratory Distress Cardiovascular: positive: Regular Rhythm, Regular Rate Gastrointestinal/Abdominal: positive: Normal Bowel Sounds, Soft, Protuberent ( 16 weeks .) Musculoskeletal: positive: Normal Inspection. negative: CVA Tenderness, Decreased Range of Motion, Vertebral Tenderness Extremity: positive: Normal Capillary Refill, Normal Inspection, Normal Range of Motion. negative: Pedal Edema, Swelling, Calf Tenderness, Erythema, Inflammation Integumentary: positive: Normal Color, Dry, Warm Neurologic: positive: head of cytogenetics II-XII NML intact, Fully Oriented, Alert, Normal Mood/ Affect, Normal Response, Motor Strength 5/5 Medical Decision Making - Medical Decision Making 01/20/17 07:08 Report given to Chaz WHARTON. Follow up urinalysis, re-evaluation, and disposition. *DC/Admit/Observation/Transfer - Referrals Referrals: Keke Hoang MD [Primary Care Provider] -
[2017-01-20] MEDS ORDERED: predniSONE 20 MG TABLET (UD) PO ONE (07:20)
--- NOTE | 2017-01-20 07:20 | PDOC ---
*Physical Exam - Vital Signs Last Vital Signs Temp Pulse Resp BP Pulse Ox 97.7 F 68 18 116/71 100 01/20/17 06:33 01/20/17 06:33 01/20/17 06:33 01/20/17 06:33 01/20/17 06:33 - Physical Exam General Appearance: Yes: Nourished, Appropriately Dressed. No: Apparent Distress HEENT: positive: Normal Voice Neck: positive: Supple Respiratory/Chest: positive: Normal Breath Sounds. negative: Respiratory Distress, Wheezing Integumentary: positive: Dry, Warm Neurologic: positive: Fully Oriented, Alert, Normal Mood/Affect ED Treatment Course - Medications Given in the ED: ED Medications Discontinued Medications Generic Name Dose Route Start Last Admin Trade Name Freq PRN Reason Stop Dose Admin Albuterol Sulfate 1 amp 01/20/17 06:57 01/20/17 07:02 Ventolin 0.042trength) - NEB 01/20/17 06:58 1 amp ONCE ONE Administration Medical Decision Making - Medical Decision Making 01/20/17 07:12 Patient signed out to me at 7 AM Patient is a 21-year-old female, approximately 16 weeks with history of asthma, hyperthyroidism and bilateral BKA secondary to complications of meningitis in childhood, presents with shortness of breath that woke her up from sleep this a.m. Denies chest pain or palpitations. Patient, not certain if shortness of breath is her asthma and states she did not use her rescue inhaler because she was not sure if it was safe in . As per prior team , patient stable with possible coarse breath sounds. Currently receiving nebulizers. Will give steroids as well as per d/w ED attg. Pending reassessment 01/20/17 07:19 01/20/17 07:20 01/20/17 09:29 On reassessment, patient continues to complain of feeling winded and became short of breath after walking in ED. No wheezing, chest pain or palpitations and vitals are stable at this time. Patient states she's never been admitted for her asthma and no history of intubations. Very low suspicion for PE as discussed with ED attending. Plan is to discuss with hospitalist and admit. Will also inform patient's OB 01/20/17 10:50 Admitting team came down to evaluate pt, states pt's ambulatory sat remained 100 % on RA throughout and pt's lungs remains clear on reassessment. Pt now reports to me that she feels well enough to to go home. Admitting team had contacted pt' s OB but was unable to get MD on phone. Pt states she will f/u with MD when she gets home. Sent home w/ rx for short steroid burst as d/w ED attg 01/20/17 11:47 *DC/Admit/Observation/Transfer Diagnosis at time of Disposition: Asthma exacerbation - Discharge Dispostion Disposition: HOME Condition at time of disposition: Improved - Prescriptions Prescriptions: Prednisone [Deltasone -] 40 mg PO UTDICT #6 tablet - Referrals Referrals: Keke Hoang MD [Primary Care Provider] - - Patient Instructions Printed Discharge Instructions: Asthma -- Adult Additional Instructions: Take medication as directed and follow up with your OB tomorrow Return to ED for worsening of symptoms - Post Discharge Activity
[2017-01-20] MEDS ORDERED: predniSONE 20 MG TABLET (UD) ONE (07:24)
[2017-01-20] MEDS ORDERED: ALBUTEROL SO4 2.5/IPRATROPIUM 0.5 INH SOL 3 ML VIAL.NEB. NEB ONE ×2 (08:22→08:24)
[2017-01-20 11:15] VITALS: BP 109/63; PULSE 90
== END 2017-01-20 11:15 | disposition home or self-care (01) ==
LOC: JER 06:24
PROC: 3E0F7GC Introduction of Other Therapeutic Substance into Respiratory Tract, Via Natural or Artificial Opening (ICD-10-PCS; principal; 2017-01-20)
DX: O26.892 Other specified pregnancy related conditions, second trimester (principal); J45.901 Unspecified asthma with (acute) exacerbation; O99.282 Endocrine, nutritional and metabolic diseases complicating pregnancy, second trimester; Z3A.16 16 weeks gestation of pregnancy
CPT/HCPCS: 94640; 99282-25

== ENCOUNTER 2017-03-17 18:48 | Emergency (ER) | payer OTHER ==
[2017-03-17 18:53] VITALS: TEMP 100.6; BMI 19.8
--- NOTE | 2017-03-17 19:31 | PDOC ---
History of Present Illness - General Chief Complaint: Palpitations Stated Complaint: PALPITATIONS Time Seen by Provider: 03/17/17 19:08 Past History - Past Medical History Allergies/Adverse Reactions: Allergies Allergy/AdvReac Type Severity Reaction Status Date / Time No Known Allergies Allergy Verified 03/17/17 18:49 Home Medications: Ambulatory Orders Vitamins (Sjr) - 1 tab PO DAILY 03/13/17 Acetaminophen [Tylenol] 650 mg PO TID #30 tablet 03/17/17 Asthma: Yes Seizures: Yes (HYPO) Thyroid Disease: Yes (HYPER.) - Reproductive History (#): 1 Para: 0 Cervical CA: No Dysfunctional Uterine Bleeding: No Ectopic : No Endometrial CA: No Polycystic Ovaries: No Therapeutic (s) & number: No Tubal Ligation: No Spontaneous : 0 - Immunization History Immunization Up to Date: Yes - Suicide/Smoking/Psychosocial Hx Smoking Status: No Smoking History: Never smoked Have you smoked in the past 12 months: No Number of Cigarettes Smoked Daily: 0 Hx Alcohol Use: No Drug/Substance Use Hx: No Substance Use Type: None *Physical Exam - Vital Signs Last Vital Signs Temp Pulse Resp BP Pulse Ox 100.6 F H 93 H 18 108/61 99 03/17/17 18:48 03/17/17 20:51 03/17/17 20:51 03/17/17 20:51 03/17/17 20:51 ED Treatment Course - ADDITIONAL ORDERS Additional order review: Laboratory Results 03/17/17 19:51 Urine Color Straw Urine Appearance Clear Urine pH 8.0 Ur Specific [place] 1.010 Urine Protein Negative Urine Glucose (UA) Negative Urine Ketones Negative Urine Blood Negative Urine Nitrite Negative Urine Bilirubin Negative Urine Urobilinogen Negative Ur Leukocyte Esterase 3+ H Urine RBC 0-2 Urine WBC 5-10 Urine Bacteria Few 03/17/17 19:43 Influenza Types A,B Antigen (KALE) - Final Nasopharyngeal Swab - Final - Medications Given in the ED: ED Medications Discontinued Medications Generic Name Dose Route Start Last Admin Trade Name Freq PRN Reason Stop Dose Admin Acetaminophen 650 mg 03/17/17 20:55 03/17/17 20:55 Tylenol - PO 03/17/17 20:56 650 mg NOW ONE Administration Medical Decision Making - Medical Decision Making 03/18/17 00:53 this pt was seen and evaluated by the mid level provider and I agree with her assessment and management of the case *DC/Admit/Observation/Transfer Diagnosis at time of Disposition: Palpitations - Discharge Dispostion Disposition: HOME Condition at time of disposition: Stable - Prescriptions Prescriptions: Acetaminophen [Tylenol] 650 mg PO TID #30 tablet - Referrals Referrals: Jonathan Chaidez MD [Staff Physician] - Keke Hoang MD [Primary Care Provider] - - Patient Instructions Printed Discharge Instructions: DI for Palpitations Additional Instructions: Increase fluids Follow up with your physician and the Project Director listed on your discharge Return to the ER for severe/persistent/worsening symptoms
[2017-03-17 20:09] LABS: URINE APPEARANCE CLEAR; URINE BILIRUBIN NEGATIVE (NEGATIVE); URINE BLOOD NEGATIVE (NEGATIVE); URINE COLOR STRAW; URINE GLUCOSE (UA) NEGATIVE (NEGATIVE); URINE KETONE NEGATIVE (NEGATIVE); URINE NITRITE NEGATIVE (NEGATIVE); URINE PROTEIN NEGATIVE (NEGATIVE); URINE UROBILINOGEN NEGATIVE mg/dL (0.2-1.0)
--- NOTE | 2017-03-17 20:41 | PDOC ---
History of Present Illness - General Chief Complaint: Palpitations Stated Complaint: PALPITATIONS Time Seen by Provider: 03/17/17 19:08 History Source: Patient Exam Limitations: No Limitations - History of Present Illness Initial Comments: 03/18/17 01:41 PMD: Dr. Davies from the clinic Telephone number: 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 Patient states she had chest palpitations 12 hours ago while watching TV in a supine position. Palpitations lasted for approximately 1 minute subsided on its own. No alleviating or exacerbating factors. No history of similar symptoms. Patient denies ear/nose/throat pain. Past History - Past Medical History Allergies/Adverse Reactions: Allergies Allergy/AdvReac Type Severity Reaction Status Date / Time No Known Allergies Allergy Verified 03/17/17 18:49 Home Medications: Ambulatory Orders Vitamins (Sjr) - 1 tab PO DAILY 03/13/17 Acetaminophen [Tylenol] 650 mg PO TID #30 tablet 03/17/17 Asthma: Yes Seizures: Yes (HYPO) Thyroid Disease: Yes (HYPER.) - Reproductive History (#): 1 Para: 0 Cervical CA: No Dysfunctional Uterine Bleeding: No Ectopic : No Endometrial CA: No Polycystic Ovaries: No Therapeutic (s) & number: No Tubal Ligation: No Spontaneous : 0 - Immunization History Immunization Up to Date: Yes - Suicide/Smoking/Psychosocial Hx Smoking Status: No Smoking History: Never smoked Have you smoked in the past 12 months: No Number of Cigarettes Smoked Daily: 0 Hx Alcohol Use: No Drug/Substance Use Hx: No Substance Use Type: None Review of Systems - Review of Systems Able to Perform ROS?: Yes Comments:: 03/18/17 01:45 CONSTITUTIONAL: Absent: fever, chills, diaphoresis, generalized weakness, malaise, loss of appetite HEENT: Absent: rhinorrhea, nasal congestion, throat pain, throat swelling, difficulty swallowing, mouth swelling, ear pain, eye pain, visual Changes CARDIOVASCULAR: Cx palpitations x12 h ago Absent: chest pain, loss of consciousness, palpitations, irregular heart rate, peripheral edema RESPIRATORY: Absent: cough, shortness of breath, dyspnea with exertion, orthopnea, wheezing, stridor, hemoptysis GASTROINTESTINAL: Absent: abdominal pain, abdominal distension, nausea, vomiting, diarrhea, constipation, melena, hematochezia GENITOURINARY: Absent: dysuria, frequency, urgency, hesitancy, hematuria, flank pain, genital pain MUSCULOSKELETAL: Absent: myalgia, arthralgia, joint swelling SKIN: Absent: rash, itching, pallor HEMATOLOGIC/IMMUNOLOGIC: Absent: easy bleeding, easy bruising, lymphadenopathy, frequent infections ENDOCRINE: Absent: unexplained weight gain, unexplained weight loss, heat intolerance, cold intolerance NEUROLOGIC: Absent: headache, focal weakness or paresthesias, dizziness, unsteady gait, seizure, mental status changes, bladder or bowel incontinence PSYCHIATRIC: Absent: anxiety, depression, suicidal or homicidal ideation, hallucinations. Is the patient limited Estonian proficient: No *Physical Exam - Vital Signs Last Vital Signs Temp Pulse Resp BP Pulse Ox 100.6 F H 93 H 18 108/61 99 03/17/17 18:48 03/17/17 20:51 03/17/17 20:51 03/17/17 20:51 03/17/17 20:51 - Physical Exam Comments: 03/18/17 01:45 GENERAL: Well developed, well nourished. Awake and alert. No acute distress. HEENT: Normocephalic, atraumatic. PERRLA, EOMI. No conjunctival pallor. Sclera are non- icteric. Moist mucous membranes. Oropharynx is clear. NECK: Supple. Full ROM. No JVD. Carotid pulses 2+ and symmetric, without bruits. No thyromegaly. No lymphadenopathy. CARDIOVASCULAR: Regular rate and rhythm. No murmurs, rubs, or gallops. Distal pulses are 2+ and symmetric. PULMONARY: No evidence of respiratory distress. Lungs clear to auscultation bilaterally. No wheezing, rales or rhonchi. ABDOMINAL: Soft. Non-tender. Non-distended. No rebound or guarding. No organomegaly. Normoactive bowel sounds. MUSCULOSKELETAL Normal range of motion at all joints. No bony deformities or tenderness. No CVA tenderness. EXTREMITIES: No cyanosis. No clubbing. No edema. No calf tenderness. SKIN: Warm and dry. Normal capillary refill. No rashes. No jaundice. NEUROLOGICAL: Alert, awake, appropriate. Cranial nerves 2-12 intact. No deficits to light touch and temperature in face, upper extremities and lower extremities. No motor deficits in the in face, upper extremities and lower extremities. Normoreflexic in the upper and lower extremities. Normal speech. Toes are down- going bilaterally. Gait is normal without ataxia. PSYCHIATRIC: Cooperative. Good eye contact. Appropriate mood and affect. Heart Score/ECG Review - History History: Slightly suspicious - Electrocardiogram EKG: Normal - Age Age: >/= 65 - Risk Factors Based on the list above the patient has:: No risk factors known - Troponin Troponin: </= normal limit - Score Heart Score - Total: 2 ED Treatment Course - ADDITIONAL ORDERS Additional order review: Laboratory Results 03/17/17 19:51 Urine Color Straw Urine Appearance Clear Urine pH 8.0 Ur Specific [place] 1.010 Urine Protein Negative Urine Glucose (UA) Negative Urine Ketones Negative Urine Blood Negative Urine Nitrite Negative Urine Bilirubin Negative Urine Urobilinogen Negative Ur Leukocyte Esterase 3+ H Urine RBC 0-2 Urine WBC 5-10 Urine Bacteria Few 03/17/17 19:43 Influenza Types A,B Antigen ([facility]) - Final Nasopharyngeal Swab - Final - Medications Given in the ED: ED Medications Discontinued Medications Generic Name Dose Route Start Last Admin Trade Name Parth PRN Reason Stop Dose Admin Acetaminophen 650 mg 03/17/17 20:55 03/17/17 20:55 Tylenol - PO 03/17/17 20:56 650 mg NOW ONE Administration *DC/Admit/Observation/Transfer Diagnosis at time of Disposition: Palpitations - Discharge Dispostion Disposition: HOME Condition at time of disposition: Stable Admit: No - Prescriptions Prescriptions: Acetaminophen [Tylenol] 650 mg PO TID #30 tablet - Referrals Referrals: Keke Hoang MD [Primary Care Provider] - Jonathan Chaidez MD [Staff Physician] - - Patient Instructions Printed Discharge Instructions: DI for Palpitations Additional Instructions: Increase fluids Follow up with your physician and the Pail Tester listed on your discharge Return to the ER for severe/persistent/worsening symptoms
[2017-03-17 20:52] VITALS: BP 108/61; PULSE 93
[2017-03-17] MEDS ORDERED: ACETAMINOPHEN 325 MG TABLET (FP) ONE (20:53)
[2017-03-17] MEDS ORDERED: ACETAMINOPHEN 325 MG TABLET (FP) PO ONE (20:55)
[2017-03-17 22:45] LABS: URINE LEUK ESTERASE 3+ (NEGATIVE)
[2017-03-17 22:57] LABS: URINE RBC 0-2 /hpf (0-3)
[2017-03-17 22:58] LABS: URINE BACTERIA FEW /hpf (NEGATIVE)
--- NOTE | 2017-03-20 14:10 | EKG ---
Test Reason : Blood Pressure : / mmHG Vent. Rate : 086 BPM Atrial Rate : 086 BPM P-R Int : 164 ms QRS Dur : 078 ms QT Int : 362 ms P-R-T Axes : 052 011 041 degrees QTc Int : 433 ms NORMAL SINUS RHYTHM POSSIBLE LEFT ATRIAL ENLARGEMENT LOW VOLTAGE QRS SEPTAL INFARCT , AGE UNDETERMINED ABNORMAL ECG Confirmed by MARTIN DURAN MD ([id number]) on 03/20/2017 9:50:07 AM Also confirmed by MARTIN DURAN MD ([id number]), editor managing newspaper CHILO FIERRO ([id number]) on 03/20/2017 11:03:46 AM Also confirmed by MARTIN DURAN MD ([id number]), editor managing newspaper [employer] ([id number]) on 03/20/2017 2:10:35 PM Referred By: Confirmed By:MARTIN DURAN MD
== END 2017-03-17 20:55 | disposition home or self-care (01) ==
LOC: JER 18:48
DX: R00.2 Palpitations (principal); Z86.61 Personal history of infections of the central nervous system; Z89.512 Acquired absence of left leg below knee; Z89.511 Acquired absence of right leg below knee
CPT/HCPCS: 81003; 81015; 87804; 93005; 93010; 99283-25

== ENCOUNTER 2017-05-27 17:38 | Emergency (ER) | payer OTHER ==
[2017-05-27 18:21] VITALS: TEMP 98.4; BMI 22.3
--- NOTE | 2017-05-27 18:23 | PDOC ---
Rapid Medical Evaluation Time Seen by Provider: 05/27/17 18:09 Medical Evaluation: Allergies Allergy/AdvReac Type Severity Reaction Status Date / Time No Known Allergies Allergy Verified 05/06/17 21:53 05/27/17 18:18 I have performed a brief in-person evaluation of this patient. The patient presents with a chief complaint of: 35 weeks w/ L retro- orbital pain worse w/ light and noise. Taking tylenol w/ no relief. Has h/o meningitis in childhood C/B b/l LE amputation, has prosthetics in place, asthma. No abd pain,vag bleed or dysuria at this time Pertinent physical exam findings:Stable and non-focal at triage I have ordered the following:nothing The patient will proceed to the ED for further evaluation.
--- NOTE | 2017-05-27 20:19 | PDOC ---
Attending Attestation - HPI HPI: 05/27/17 20:25 21 y.o female who is 35 weeks , with significant PMHx of meningitis s/p bilateral BKA amputations at 7 months old, asthma, hyperthyroidism, who presents to the emergency room complaining of 5 days of a headache.Denies visual changes, lightheadedness, dizziness. <Belem Toney - Last Filed: 05/27/17 20:27> - Resident Resident Name: Chirag Yepez - ED Attending Attestation I have performed the following: I have examined & evaluated the patient, The case was reviewed & discussed with the resident, I agree w/resident's findings & plan, Exceptions are as noted - Physicial Exam PE: 05/27/17 20:24 Physical Exam General Appearance: Yes: Appropriately Dressed. No: Apparent Distress, Intoxicated HEENT: positive: EOMI, BARRY, Normal ENT Inspection, Normal Voice, TMs Normal, Pharynx Normal. negative: Pale Conjunctivae, Photophobia, Scleral Icterus (R), Scleral Icterus (L) Neck: positive: Trachea midline, Normal Thyroid, Supple. negative: Tender, Rigid, Carotid bruit, Stridor, Lymphadenopathy (R), Lymphadenopathy (L), Thyromegaly Respiratory/Chest: positive: Lungs Clear, Normal Breath Sounds. negative: Chest Tender, Respiratory Distress, Accessory Muscle Use, Labored Respiration, RES, Crackles, Rales, Rhonchi, Stridor, Wheezing, Dullness Cardiovascular: positive: Regular Rhythm, Regular Rate, S1, S2. negative: Edema , JVD, Murmur, Bradycardia, Tachycardia Vascular Pulses: Dorsalis-Pedis (R): 2+, Doralis-Pedis (L): 2+ Gastrointestinal/Abdominal: positive: Normal Bowel Sounds, Flat, Soft. negative : Tender, Organomegaly, Pulsatile Mass, Increased Bowel Sounds, Decreased BS, Distended, Guarding, Rebound, Hernia, Hepatomegaly, Spleenomegaly Lymphatic: negative: Adenopathy, Tenderness Musculoskeletal: positive: Normal Inspection. negative: CVA Tenderness, Decreased Range of Motion Extremity: positive: Normal Capillary Refill, Normal Inspection, Normal Range of Motion, Pelvis Stable. negative: Tender, Pedal Edema, Swelling, Erythema Integumentary: positive: Normal Color, Dry, Warm. negative: Cyanotic, Erythema , Jaundice, Rash Neurologic: positive: rn residential II-XII NML intact, Fully Oriented, Alert, Normal Mood/ Affect, Motor Strength 5/5. negative: EOM Palsy, Facial Droop, Sensory Deficit - Medical Decision Making 05/28/17 19:34 Pt treated and released to go to L and D for monitoring <Bk Jennings - Last Filed: 05/28/17 19:35>
[2017-05-27] MEDS ORDERED: ACETAMINOPHEN 325 MG TABLET (FP) PO ONE (20:24)
[2017-05-27] MEDS ORDERED: METOCLOPRAMIDE HCL 10 MG TABLET (FP) PO ONE ×2 (20:24→20:32)
[2017-05-27] MEDS ORDERED: ACETAMINOPHEN 325 MG TABLET (FP) ONE (20:31)
--- NOTE | 2017-05-27 20:36 | PDOC ---
History of Present Illness - General Chief Complaint: Pain, Acute Stated Complaint: PAIN Time Seen by Provider: 05/27/17 18:09 - History of Present Illness Initial Comments: 05/27/17 20:28 The patient is a 21 year old 35 week female with a history of menigitis with b/l lower extremity amputations who presents for evaluation of headache. The patient reports a 5 day history of left sided retro-orbital throbbing headache that has been unresponsive to tylenol prompting her presentation to the ED today. She states that bright lights and loud noises worsens her headache. She denies any fevers, vision changes, chest pain, abdominal pain, nausea, vomiting, increased urination, or other changes with urination or bowel movements. Past History - Past Medical History Allergies/Adverse Reactions: Allergies Allergy/AdvReac Type Severity Reaction Status Date / Time No Known Allergies Allergy Verified 05/27/17 18:18 Home Medications: Ambulatory Orders Vitamins (Sjr) - 1 tab PO DAILY 03/13/17 Metoclopramide HCl [Reglan -] 10 mg PO QID #120 tablet 05/27/17 Asthma: Yes CVA: No COPD: No DVT: No Seizures: Yes (HYPO) Thyroid Disease: Yes (HYPER.) - Reproductive History (#): 1 Para: 0 Cervical CA: No Dysfunctional Uterine Bleeding: No Ectopic : No Endometrial CA: No Polycystic Ovaries: No Therapeutic (s) & number: No Tubal Ligation: No Spontaneous : 0 - Immunization History Immunization Up to Date: Yes - Suicide/Smoking/Psychosocial Hx Smoking Status: No Smoking History: Never smoked Have you smoked in the past 12 months: No Number of Cigarettes Smoked Daily: 0 Information on smoking cessation initiated: No Hx Alcohol Use: No Drug/Substance Use Hx: No Substance Use Type: None Review of Systems - Review of Systems Comments:: 05/27/17 20:36 Constitutional: No fevers, chills, fatigue, malaise HEENT: No Rhinorrhea, nasal congestion, visual changes Cardiovascular: No chest pain, syncope, palpitations, lightheadedness Respiratory: No Cough, SOB, Hemoptysis, Gastrointestinal: No Abdominal pain, Nausea, Vomiting, Constipation, Diarrhea, Melena Genitourinary: No Dysuria, Frequency, Urgency, Hesitancy, Hematuria, Flank pain Musculoskeletal: No Myalgia, arthralgia Skin: No rashes, bruising, pallor Neurologic: Headache. No Dizziness, Numbness, Weakness, or Tingling Psychiatric: No Hallucinations. No SI or HI *Physical Exam - Vital Signs Last Vital Signs Temp Pulse Resp BP Pulse Ox 98.4 F 119 H 17 119/58 98 05/27/17 18:19 05/27/17 18:19 05/27/17 18:19 05/27/17 18:19 05/27/17 18:19 - Physical Exam Comments: 05/27/17 20:37 General Appearance: Nourished. No Apparent Distress HEENT: EOMI, BARRY. No Pharyngeal Erythema, Tonsillar Exudate, Tonsillar Erythema Neck: No Cervical Lymphadenopathy Respiratory/Chest: Lungs Clear, Normal Breath Sounds. No Crackles, Rales, Rhonchi, Wheezing Cardiovascular: Regular Rhythm, Regular Rate. No Murmur, Gallops, Rubs Gastrointestinal/Abdominal: Normal Bowel Sounds, Soft. No Guarding, Rebound, Tenderness Musculoskeletal: No CVA Tenderness Extremity: Normal Capillary Refill Integumentary: Normal Color, Dry, Warm Neurologic: hybrid derivatives trader II-XII NML intact, Fully Oriented, Alert, Normal Mood/Affect, Normal Response, Motor Strength 5/5. ED Treatment Course - LABORATORY CBC & Chemistry Diagram: 05/27/17 20:40 05/27/17 20:40 Medical Decision Making - Medical Decision Making 05/27/17 20:37 The patient is a 21 year old 35 week female with a history of menigitis with b/l lower extremity amputations who presents for evaluation of headache. Differential includes but is not limited to: Migrainous headache, pre -eclampsia, infectious, metabolic derangement. Given the patient's normal physical exam, it is likely her symptoms are due to a migraine. She does not appear to have pre-eclampsia given her normal bp. However we will obtain a cbc , cmp, ua to evaluate further. We will treat her with tylenol and reglan and continue to monitor and reassess. 05/27/17 23:08 CBC, cmp, ua are unremarkable. The patient reports some improvement in her symptoms after tylenol, reglan and iv fluids. The patient has been medically cleared here in the ER and is stable to go to L&D for monitoring. The patient's symptoms are likely due to a combination of dehydration and migraine. We discussed the results with the patient who voiced understanding and is agreeable with the plan. *DC/Admit/Observation/Transfer Diagnosis at time of Disposition: Dehydration Headache Qualifiers: Headache type: unspecified Headache chronicity pattern: unspecified pattern Intractability: not intractable Qualified Code(s): R51 - Headache - Discharge Dispostion Disposition: HOME Condition at time of disposition: Improved Admit: No - Prescriptions Prescriptions: Metoclopramide HCl [Reglan -] 10 mg PO QID #120 tablet - Referrals Referrals: Keke Hoang MD [Primary Care Provider] - - Patient Instructions Printed Discharge Instructions: DI for Migraine, DI for Dehydration -- Adult Additional Instructions: Please return to the ER if you experience concerning or worsening symptoms including worsening pain, vomiting, difficulty breathing or fevers. You were seen in the ER for headache. Your lab results were normal. It is likely your symptoms are due to a combination of dehydration and a migraine. We have sent a prescription for an anti-nausea medication that assists with headaches to your pharmacy. Please continue to hydrate yourself with water. Please call to schedule a follow up appointment with your granite setter physician to discuss your ER visit within 1 week. - Post Discharge Activity
[2017-05-27 21:10] LABS: BASO # 0.1 #; BASO % 0.9 % (0-2.0); EOS % 0.4 % (0-4.5); LYMPH # 2.4; MCH 29.8 pg (25.7-33.7); MCHC 32.4 g/dl (32.0-36.0); MEAN CELL VOLUME 92.1 fl (80-96); MONO # 0.5 #; NEUT # 4.8 #; NEUT % 61.2 % (42.8-82.8); PLATELET COUNT 312 K/MM3 (134-434); RDW 15.3 % (11.6-15.6); WHITE BLOOD COUNT 7.9 K/mm3 (4.0-10.0)
[2017-05-27] MEDS ORDERED: SODIUM CHLORIDE 1,000 ML IV STA (21:22)
[2017-05-27 21:40] LABS: ALBUMIN 2.5 g/dl (3.4-5.0); ANION GAP 9 (8-16); BILIRUBIN,TOTAL 0.5 mg/dL (0.2-1.0); CALCIUM 8.7 mg/dL (8.5-10.1); CO2 22 mmol/L (21-32); CREATININE 0.5 mg/dL (0.55-1.02); GLUCOSE,RANDOM 94 mg/dL (74-106); SGPT/ALT 16 U/L (12-78); TOT PROT 6.8 g/dl (6.4-8.2)
[2017-05-27 21:41] LABS: ALK PHOS 261 U/L (45-117)
[2017-05-27 22:07] LABS: SGOT/AST 27 U/L (15-37)
[2017-05-27 22:49] LABS: URINE APPEARANCE SLCLOUDY; URINE BILIRUBIN NEGATIVE (NEGATIVE); URINE BLOOD NEGATIVE (NEGATIVE); URINE COLOR YELLOW; URINE GLUCOSE (UA) NEGATIVE (NEGATIVE); URINE KETONE 2+ (NEGATIVE); URINE NITRITE NEGATIVE (NEGATIVE); URINE PROTEIN NEGATIVE (NEGATIVE); URINE UROBILINOGEN NEGATIVE mg/dL (0.2-1.0)
[2017-05-27 22:50] LABS: URINE LEUK ESTERASE 1+ (NEGATIVE)
[2017-05-27 23:13] VITALS: BP 120/68; PULSE 72
[2017-05-27 23:13] LABS: URINE MUCUS RARE; URINE RBC 2 /hpf (0-3); URINE WBC 5 /hpf (3-5)
[2017-05-28 12:55] LABS: URINE LEUK ESTERASE Negative (NEGATIVE)
== END 2017-05-28 00:59 | disposition home or self-care (01) ==
LOC: JER 17:38
DX: O99.89 Other specified diseases and conditions complicating pregnancy, childbirth and the puerperium (principal); R51 Headache; Z3A.35 35 weeks gestation of pregnancy; Z86.61 Personal history of infections of the central nervous system; Z89.512 Acquired absence of left leg below knee; Z89.511 Acquired absence of right leg below knee
CPT/HCPCS: 36415; 80053; 81003; 81015; 84702; 85025; 99283-25

== ENCOUNTER 2017-06-21 07:50 | Inpatient (IN) | payer OTHER ==
[2017-06-21] MEDS ORDERED: AMPICILLIN - 2 GM in SODIUM CHLORIDE 100 ML IVPB ONE (20:50)
[2017-06-21] MEDS ORDERED: ELECTROLYTE-148 SOLN 500 ML IV SCH ×3 (20:50→21:45)
[2017-06-21] MEDS ORDERED: BUTORPHANOL TARTRATE 1 MG/ML VIAL ONE ×2 (22:06)
[2017-06-21] MEDS ORDERED: PROMETHAZINE HCL 25 MG/1 ML VIAL ONE (22:06)
[2017-06-21 22:07] LABS: BASO % 1.1 % (0-2.0); EOS % 0.5 % (0-4.5); HEMATOCRIT 39.3 % (32.4-45.2); HEMOGLOBIN 12.7 GM/dL (10.7-15.3); LYMPH % 35.1 % (8-40); MCH 29.3 pg (25.7-33.7); MCHC 32.4 g/dl (32.0-36.0); MEAN CELL VOLUME 90.4 fl (80-96); MEAN PLT VOLUME 10.1 fl (7.5-11.1); MONO % 6.1 % (3.8-10.2); NEUT % 57.2 % (42.8-82.8); PLATELET COUNT 345 K/MM3 (134-434); RBC 4.34 M/mm3 (3.60-5.2); RDW 14.9 % (11.6-15.6); WHITE BLOOD COUNT 11.4 K/mm3 (4.0-10.0)
[2017-06-21 22:26] LABS: INR 0.92 (0.82-1.09); PROTHROMBIN TIME (PATIENT) 10.4 SEC (9.98-11.88)
[2017-06-21] MEDS: ELECTROLYTE-148 SOLN 1,000 ML IV SCH (22:30)
[2017-06-21 22:33] LABS: ANION GAP 11 (8-16); BLOOD UREA NITROGEN 8 mg/dL (7-18); CALCIUM 8.7 mg/dL (8.5-10.1); CHLORIDE 106 mmol/L (98-107); CO2 22 mmol/L (21-32); CREATININE 0.5 mg/dL (0.55-1.02); GLUCOSE,RANDOM 64 mg/dL (74-106); POTASSIUM 4.3 mmol/L (3.5-5.1); SODIUM 139 mmol/L (136-145)
[2017-06-21 22:44] VITALS: BMI 22.3
--- NOTE | 2017-06-21 23:07 | HP ---
Past Medical History - Admission Chief Complaint: Labor pain History of Present Illness: 21 yo @ 39.1 weeks gestation, EDC 06/27/17, presents to L&D c/o labor pain. She denies any vaginal bleeding nor ROM. Upon admission, she was 4cm dilated. History Source: Patient Limitations to Obtaining History: No Limitations - Past Medical History ...: 2 ...Para: 0 ...Term: 0 ...: 0 ...Spon : 0 ...Induced : 1 ...Multiple Gestation: 0 ...LMP: 09/20/16 ... Weeks Gestation by Dates: 39.1 ...EDC by Dates: 06/27/17 ...EDC by Sono: 06/27/17 - Past Surgical History Hx Myomectomy: No Hx Transabdominal Cerclage: No Additional Surgical History: Below the knee amputation - Smoking History Smoking history: Never smoked Have you smoked in the past 12 months: No Aproximately how many cigarettes per day: 0 - Alcohol/Substance Use Hx Alcohol Use: No - Social History Usual Living Arrangement: Yes: With Parent History of Recent Travel: No Home Medications - Allergies Allergies/Adverse Reactions: Allergies Allergy/AdvReac Type Severity Reaction Status Date / Time No Known Allergies Allergy Verified 05/27/17 18:18 - Home Medications Home Medications: Ambulatory Orders Vitamins (Sjr) - 1 tab PO DAILY 03/13/17 Metoclopramide HCl [Reglan -] 10 mg PO QID #120 tablet 05/27/17 Review of Systems - Review of Systems Constitutional: reports: No Symptoms Eyes: reports: No Symptoms HENT: reports: No Symptoms Neck: reports: No Symptoms Cardiovascular: reports: No Symptoms Respiratory: reports: No Symptoms Gastrointestinal: reports: No Symptoms Genitourinary: reports: Pain Breasts: reports: No Symptoms Reported Integumentary: reports: No Symptoms Neurological: reports: No Symptoms Psychiatric: reports: No Symptoms Pain Intensity: 7 Physical Exam - Maternity Vital Signs: Vital Signs Temperature 98.3 F 06/21/17 21:46 Pulse Rate 108 H 06/21/17 21:46 Respiratory Rate 20 06/21/17 21:46 Blood Pressure 127/77 06/21/17 21:46 O2 Sat by Pulse Oximetry (%) Constitutional: Yes: Well Nourished Eyes: Yes: Conjunctiva Clear HENT: Yes: Atraumatic Neck: Yes: Supple, Trachea Midline Cardiovascular: Yes: Regular Rate and Rhythm Lungs: Clear to auscultation - Abdominal Exam/OB Number of Fetuses: Single Presentation: Vertex Intensity: Moderate - Vaginal Exam/OB Dilatation (cm): 4 Effacement (%): 100 Station: -2 - Physical Exam Extremities: Yes: Amputation (Both leg) - Labs Lab Results: CBC, BMP 06/21/17 21:40 06/21/17 21:35 Problem List - Problems (1) Pain during labor Code(s): O99.89 - OTH DISEASES AND CONDITIONS COMPL PREG/CHLDBRTH; R52 - PAIN, UNSPECIFIED Assessment/Plan Active labor Admit to L&D Analgesia as needed Anticipate
[2017-06-22] MEDS ORDERED: FENTANYL/BUPIVACAINE/NS/PF - PCEA - 50 ML DISP.SYRIN EP ONE ×2 (01:43→07:10)
[2017-06-22] MEDS: AMPICILLIN - 1 GM in SODIUM CHLORIDE 100 ML IVPB SCH ×3 (02:00→06:00)
[2017-06-22] MEDS: FENTANYL/BUPIVACAINE/NS/PF - PCEA - 50 ML DISP.SYRIN EP SCH ×2 (02:25→07:19)
[2017-06-22] MEDS ORDERED: NALOXONE HCL 0.4 MG/ML VIAL IVPUSH PRN (02:46)
[2017-06-22] MEDS ORDERED: ACETAMINOPHEN INJECTION 100 ML IVPB ONE (05:32)
[2017-06-22] MEDS ORDERED: ACETAMINOPHEN 1000 MG/100 ML VIAL (NON FORMULARY) IVPB ONE (05:45)
--- NOTE | 2017-06-22 08:27 | PN ---
Progress Note (short form) - Note Progress Note: Patient seen and evaluated, she's lying comfortably in bed. She's status post epidural anesthesia. FHR : Reassuring [place] : + irregular contractions VE ; 6/100/-1 ( unchanged for the past 4 hrs ) A/P : IUP @ 39 weeks Arrest of dilatation Bilateral leg amputation Prep and shave Consent signed Anesthesia to see patient Problem List - Problems (1) Pain during labor Code(s): O99.89 - OTH DISEASES AND CONDITIONS COMPL PREG/CHLDBRTH; R52 - PAIN, UNSPECIFIED
[2017-06-22] MEDS ORDERED: CITRIC ACID/SODIUM CITRATE 30 ML UNIT-DOSE CUP PO ONE ×2 (08:28→10:45)
[2017-06-22] MEDS ORDERED: ELECTROLYTE-148 SOLN 500 ML IV ONE (08:28)
[2017-06-22] MEDS ORDERED: ONDANSETRON 4 MG/2 ML VIAL IVPUSH PRN (08:29)
[2017-06-22] MEDS ORDERED: PHENYLEPHRINE HCL 10 MG/1 ML SINGLE DOSE VIAL ONE (08:31)
[2017-06-22] MEDS ORDERED: PROPOFOL 20 ML ONE (08:32)
[2017-06-22] MEDS ORDERED: morphine SULFATE/Preservative Free 0.5 MG/ML (1cc Syringe) ONE ×5 (08:32)
[2017-06-22] MEDS ORDERED: OXYTOCIN 10 UNITS/ML VIAL ONE ×2 (08:41→09:30)
[2017-06-22] MEDS ORDERED: KETOROLAC TROMETHAMINE 30 MG/1 ML VIAL ONE (08:41)
[2017-06-22] MEDS: ELECTROLYTE-148 SOLN 1,000 ML IV SCH (08:45)
[2017-06-22] MEDS ORDERED: ceFAZolin SODIUM 1 GM VIAL ONE (08:53)
[2017-06-22] MEDS ORDERED: SODIUM CHLORIDE 0.9% P/F 10 ML VIAL IJ ONE (08:53)
[2017-06-22] MEDS ORDERED: METOPROLOL TARTRATE 5 MG/5 ML VIAL ONE (09:05)
[2017-06-22] MEDS ORDERED: METHYLERGONOVINE MALEATE 0.2 MG/1 ML AMP IM PRN (09:36)
--- NOTE | 2017-06-22 09:43 | OP ---
Operative Note - Note: Operative Date: 06/22/17 Pre-Operative Diagnosis: Arrest of descent Operation: Primary Low Transverse Post-Operative Diagnosis: Same as Pre-op Surgeon: Allyssa Escobar General Store Manager: Danilo Oneil Anesthesia: Epidural Specimens Removed: Placenta Estimated Blood Loss (mls): 500
[2017-06-22] MEDS ORDERED: OXYTOCIN 20 UNITS in 0.9% NS 20 UNIT/1,000 ML INFUS.BAG IV SCH (09:45)
[2017-06-22] MEDS ORDERED: ELECTROLYTE-148 SOLN 500 ML IV SCH (10:45)
[2017-06-22] MEDS ORDERED: ELECTROLYTE-148 SOLN 1,000 ML IV SCH (10:45)
[2017-06-22] MEDS: ACETAMINOPHEN 325 MG TABLET (FP) PO PRN (17:45)
[2017-06-22] MEDS: IBUPROFEN 600 MG TABLET (FP) PO PRN (17:45)
[2017-06-22] MEDS: SIMETHICONE 80 MG TAB.CHEW (FP) PO PRN (17:46)
[2017-06-23] MEDS: IBUPROFEN 600 MG TABLET (FP) PO PRN ×3 (05:13→14:20)
[2017-06-23] MEDS: SIMETHICONE 80 MG TAB.CHEW (FP) PO PRN ×4 (05:13→20:14)
[2017-06-23] MEDS: ACETAMINOPHEN 325 MG TABLET (FP) PO PRN ×3 (05:15→20:14)
[2017-06-23 07:35] LABS: BASO % 0.3 % (0-2.0); EOS % 0.2 % (0-4.5); HEMATOCRIT 30.8 % (32.4-45.2); HEMOGLOBIN 9.7 GM/dL (10.7-15.3); LYMPH % 11.1 % (8-40); MCHC 31.4 g/dl (32.0-36.0); MEAN CELL VOLUME 92.5 fl (80-96); MEAN PLT VOLUME 9.3 fl (7.5-11.1); MONO % 4.6 % (3.8-10.2); NEUT % 83.8 % (42.8-82.8); PLATELET COUNT 258 K/MM3 (134-434); RBC 3.33 M/mm3 (3.60-5.2); RDW 15.3 % (11.6-15.6); WHITE BLOOD COUNT 16.9 K/mm3 (4.0-10.0)
[2017-06-23] MEDS: oxyCODONE HCL 5 MG TABLET PO PRN ×3 (08:28→20:14)
--- NOTE | 2017-06-23 09:28 | PN ---
Progress Note (short form) - Note Progress Note: Pt doing well day #1 s/p c/s. No ALEXANDER, backpain, no other anesthetic complications. Continue current care
[2017-06-23] MEDS ORDERED: BISACODYL 10 MG SUPP.RECT RC PRN (09:39)
--- NOTE | 2017-06-23 10:37 | PN ---
Post Progress Note - Subjective Subjective: 21 yo Para 1 status post primary , seen and evaluated. Doing well. Post Day: 1 Type of Delivery: Primary C/S Vital Signs: Vital Signs Temperature 98.8 F 06/23/17 06:00 Pulse Rate 76 06/23/17 06:00 Respiratory Rate 18 06/23/17 06:00 Blood Pressure 139/82 06/23/17 06:00 O2 Sat by Pulse Oximetry (%) 100 06/22/17 21:00 Breast Exam: Yes: Soft Uterus: Yes: Fundus Firm Incision: Yes: Dressing dry and intact Abdomen/GI: Yes: Abdomen soft, Tolerating PO Lochia: Yes: Rubra Lochia, amount: Small Extremities: Yes: Calves non-tender Perineum: Yes: Intact Activity: Other (She's lying in bed) - Labs Labs: CBC WBC 16.9 K/mm3 (4.0-10.0) H D 06/23/17 06:50 RBC 3.33 M/mm3 (3.60-5.2) L D 06/23/17 06:50 Hgb 9.7 GM/dL (10.7-15.3) L D 06/23/17 06:50 Hct 30.8 % (32.4-45.2) L D 06/23/17 06:50 MCV 92.5 fl (80-96) 06/23/17 06:50 MCH 29.0 pg (25.7-33.7) 06/23/17 06:50 MCHC 31.4 g/dl (32.0-36.0) L 06/23/17 06:50 RDW 15.3 % (11.6-15.6) 06/23/17 06:50 Plt Count 258 K/MM3 (134-434) D 06/23/17 06:50 MPV 9.3 fl (7.5-11.1) 06/23/17 06:50 Neutrophils % 83.8 % (42.8-82.8) H D 06/23/17 06:50 Lymphocytes % 11.1 % (8-40) D 06/23/17 06:50 Monocytes % 4.6 % (3.8-10.2) 06/23/17 06:50 Eosinophils % 0.2 % (0-4.5) 06/23/17 06:50 Basophils % 0.3 % (0-2.0) 06/23/17 06:50 Problem List - Problems (1) Pain during labor Code(s): O99.89 - OTH DISEASES AND CONDITIONS COMPL PREG/CHLDBRTH; R52 - PAIN, UNSPECIFIED (2) Status post primary low transverse section Code(s): Z98.891 - HISTORY OF UTERINE SCAR FROM PREVIOUS SURGERY Assessment/Plan Status post primary Analgesia as needed Continue post op care
[2017-06-24] MEDS: oxyCODONE HCL 5 MG TABLET PO PRN ×4 (00:46→20:32)
[2017-06-24] MEDS: SIMETHICONE 80 MG TAB.CHEW (FP) PO PRN ×4 (00:46→20:33)
[2017-06-24] MEDS: ACETAMINOPHEN 325 MG TABLET (FP) PO PRN (00:46)
[2017-06-24] MEDS: IBUPROFEN 600 MG TABLET (FP) PO PRN ×3 (08:01→20:33)
--- NOTE | 2017-06-24 08:15 | PN ---
Post Progress Note - Subjective Subjective: c/o pain scale 8/10 voiding without difficulty bm done Post Day: 2 Type of Delivery: Primary C/S Vital Signs: Vital Signs Temperature 98.4 F 06/23/17 22:00 Pulse Rate 87 06/23/17 22:00 Respiratory Rate 20 06/23/17 22:00 Blood Pressure 120/71 06/23/17 22:00 O2 Sat by Pulse Oximetry (%) 100 06/22/17 21:00 Breast Exam: Yes: Soft, Other (does not wish to BF ). No: Engorged Uterus: Yes: Fundus Firm, Fundus below umbilicus, Non-tender Incision: Yes: Dressing dry and intact (to be changed ). No: Oozing Abdomen/GI: Yes: Abdomen soft, Passing flatus, Tolerating PO (diet ). No: Abdominal Distention, Tender Lochia: Yes: Rubra Lochia, amount: Moderate Perineum: Yes: Intact Activity: Ambulating, Other (s/p bilateral amputation ) - Labs Labs: CBC WBC 16.9 K/mm3 (4.0-10.0) H D 06/23/17 06:50 RBC 3.33 M/mm3 (3.60-5.2) L D 06/23/17 06:50 Hgb 9.7 GM/dL (10.7-15.3) L D 06/23/17 06:50 Hct 30.8 % (32.4-45.2) L D 06/23/17 06:50 MCV 92.5 fl (80-96) 06/23/17 06:50 MCH 29.0 pg (25.7-33.7) 06/23/17 06:50 MCHC 31.4 g/dl (32.0-36.0) L 06/23/17 06:50 RDW 15.3 % (11.6-15.6) 06/23/17 06:50 Plt Count 258 K/MM3 (134-434) D 06/23/17 06:50 MPV 9.3 fl (7.5-11.1) 06/23/17 06:50 Neutrophils % 83.8 % (42.8-82.8) H D 06/23/17 06:50 Lymphocytes % 11.1 % (8-40) D 06/23/17 06:50 Monocytes % 4.6 % (3.8-10.2) 06/23/17 06:50 Eosinophils % 0.2 % (0-4.5) 06/23/17 06:50 Basophils % 0.3 % (0-2.0) 06/23/17 06:50 Problem List - Problems (1) Status post primary low transverse section Code(s): Z98.891 - HISTORY OF UTERINE SCAR FROM PREVIOUS SURGERY Assessment/Plan stable, anemia Plan ct po care
--- NOTE | 2017-06-25 07:31 | PN ---
Post Progress Note - Subjective Subjective: pain is tolerable today. she requests for discharge today Post Day: 3 Type of Delivery: Primary C/S Vital Signs: Vital Signs Temperature 98.5 F 06/24/17 21:00 Pulse Rate 85 06/24/17 21:00 Respiratory Rate 20 06/24/17 21:00 Blood Pressure 120/84 06/24/17 21:00 O2 Sat by Pulse Oximetry (%) 100 06/22/17 21:00 Breast Exam: Yes: Soft, Other (not BF ). No: Engorged Uterus: Yes: Fundus Firm, Fundus below umbilicus, Non-tender Incision: Yes: Sutures intact (steri strips in situ ). No: Redness, Oozing Abdomen/GI: Yes: Abdomen soft, Passing flatus, Tolerating PO (diet ). No: Abdominal Distention, Tender Lochia: Yes: Rubra Lochia, amount: Moderate Extremities: Yes: Calves non-tender Perineum: Yes: Intact Activity: Ambulating - Labs Labs: CBC WBC 16.9 K/mm3 (4.0-10.0) H D 06/23/17 06:50 RBC 3.33 M/mm3 (3.60-5.2) L D 06/23/17 06:50 Hgb 9.7 GM/dL (10.7-15.3) L D 06/23/17 06:50 Hct 30.8 % (32.4-45.2) L D 06/23/17 06:50 MCV 92.5 fl (80-96) 06/23/17 06:50 MCH 29.0 pg (25.7-33.7) 06/23/17 06:50 MCHC 31.4 g/dl (32.0-36.0) L 06/23/17 06:50 RDW 15.3 % (11.6-15.6) 06/23/17 06:50 Plt Count 258 K/MM3 (134-434) D 06/23/17 06:50 MPV 9.3 fl (7.5-11.1) 06/23/17 06:50 Neutrophils % 83.8 % (42.8-82.8) H D 06/23/17 06:50 Lymphocytes % 11.1 % (8-40) D 06/23/17 06:50 Monocytes % 4.6 % (3.8-10.2) 06/23/17 06:50 Eosinophils % 0.2 % (0-4.5) 06/23/17 06:50 Basophils % 0.3 % (0-2.0) 06/23/17 06:50 Problem List - Problems (1) Status post primary low transverse section Code(s): Z98.891 - HISTORY OF UTERINE SCAR FROM PREVIOUS SURGERY Assessment/Plan stable, anemia Plan ct po care discharge today. anemia is counselled
[2017-06-25 07:34] LABS: BASO % 0.3 % (0-2.0); HEMATOCRIT 29.1 % (32.4-45.2); HEMOGLOBIN 9.3 GM/dL (10.7-15.3); LYMPH % 23.8 % (8-40); MCH 29.2 pg (25.7-33.7); MEAN CELL VOLUME 91.4 fl (80-96); MEAN PLT VOLUME 8.9 fl (7.5-11.1); MONO % 7.4 % (3.8-10.2); NEUT % 66.5 % (42.8-82.8); PLATELET COUNT 271 K/MM3 (134-434); RBC 3.19 M/mm3 (3.60-5.2); RDW 14.9 % (11.6-15.6); WHITE BLOOD COUNT 10.6 K/mm3 (4.0-10.0)
[2017-06-25 09:09] VITALS: BP 129/85; PULSE 70; TEMP 98.7
[2017-06-25] MEDS: SIMETHICONE 80 MG TAB.CHEW (FP) PO PRN (09:59)
[2017-06-25] MEDS: IBUPROFEN 600 MG TABLET (FP) PO PRN (09:59)
--- NOTE | 2017-07-01 11:12 | PATH ---
Surgical Pathology Report Patient Name: [facility]SC[facility]. Rec. 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 Specimen(s) Received PLACENTA Clinical History Final Diagnosis PLACENTA, SECTION: 424 g THIRD TRIMESTER PLACENTA WITH TRIVASCULAR UMBILICAL CORD AND FOCAL MILD ACUTE CHORIOAMNIONITIS. Electronically Signed Teresa Kern M.D. Gross Description The specimen is received fresh labeled placenta and is a 424 gram, 18.0 x 10.5 x 2.3 cm. placenta with attached membranes and umbilical cord. The attached membranes are jose, translucent with focal opacities and insert marginally. The umbilical cord measures 21 cm. in length and averages 0.8 cm. in diameter. The cord inserts eccentrically, 6 cm. to the nearest margin. No true knots or strictures are identified. Cut surface of the umbilical cord reveals 3 vessels. The surface is mcmillan-blue with minimal fibrin deposition and appropriate caliber vessels. The maternal surface is red-brown with focal defects. Sectioning reveals red-brown, spongy parenchyma. No lesions are identified. Graphite Pan Drier Tender sections are submitted in three cassettes as follows: 1- membrane rolls and umbilical cord; 2-3- full thickness sections of placenta. /06/24/2017 [facility]06/24/2017
== END 2017-06-25 11:50 | disposition home or self-care (01) | DRG 540 ==
LOC: JDEL 07:50 → JLDR 20:15 → J3W 06-22 11:11
PROVIDERS: ADMIT Obstetrics & Gynecology; ATTEND Obstetrics & Gynecology
PROC: 10D00Z1 Extraction of Products of Conception, Low, Open Approach (ICD-10-PCS; principal; 2017-06-22)
DX: O62.1 Secondary uterine inertia (principal); O99.02 Anemia complicating childbirth; D64.9 Anemia, unspecified; O26.893 Other specified pregnancy related conditions, third trimester; Z89.512 Acquired absence of left leg below knee; Z89.511 Acquired absence of right leg below knee; Z3A.39 39 weeks gestation of pregnancy; Z37.0 Single live birth
CPT/HCPCS: 36415; 80048; 85025; 85610; 85730; 86593; 86850; 86900; 86901; 87389; 88307-TC

== ENCOUNTER 2017-06-27 19:24 | Emergency (ER) | payer OTHER ==
[2017-06-27 19:29] VITALS: BP 119/77; PULSE 100; TEMP 98; BMI 22.3
--- NOTE | 2017-06-27 20:30 | PDOC ---
History of Present Illness <Roxanna Velarde - Last Filed: 06/27/17 20:45> - General History Source: Patient Exam Limitations: No Limitations - History of Present Illness Initial Comments: 06/27/17 20:51 Patient is a 21 year old female, A0, with a significant past medical history of Asthma, Meningitis, who presents to the ED with complaints of lower rigth sided abdominal pain, s/p C- Section , that began earlier this week. Patient reports recently giving via c section and has begun to experience right sided pain along her scar. She reports the right side of her scar is open and has begun to discharge puss with yellowish coloration. Denies chest pain, Sob. Denies fevers, chills. Denies contact with sick individuals, out of state traveling. Denies breast feeding. Denies constipation , diarrhea, dysuria, hematuria. Denies any other symptoms. 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 PMD: None <Nato Ball - Last Filed: 06/27/17 20:51> - General Chief Complaint: Wound Stated Complaint: POST DELIVERY PROBLEM Time Seen by Provider: 06/27/17 20:23 Past History - Past Medical History Asthma: Yes (albuterol prn) Cancer: No Cardiac Disorders: No CVA: No COPD: No DVT: No Diabetes: No HTN: No Seizures: No Thyroid Disease: Yes (hyperthyroid no meds) - Reproductive History (#): 1 Para: 0 Cervical CA: No Dysfunctional Uterine Bleeding: No Ectopic : No Endometrial CA: No Polycystic Ovaries: No Therapeutic (s) & number: No Tubal Ligation: No Spontaneous : 0 - Immunization History Immunization Up to Date: Yes - Suicide/Smoking/Psychosocial Hx Smoking Status: No Smoking History: Unknown if ever smoked Have you smoked in the past 12 months: No Number of Cigarettes Smoked Daily: 0 Hx Alcohol Use: No Drug/Substance Use Hx: No Substance Use Type: None Hx Substance Use Treatment: No <Roxanna Velarde - Last Filed: 06/27/17 20:45> <Nato Ball - Last Filed: 06/27/17 20:51> - Past Medical History Allergies/Adverse Reactions: Allergies Allergy/AdvReac Type Severity Reaction Status Date / Time No Known Allergies Allergy Verified 06/27/17 19:29 Home Medications: Ambulatory Orders Albuterol Sulfate Inhaler - [Ventolin HFA Inhaler -] 1 - 2 inh PO Q4H PRN Amoxicillin/Potassium Clav [Augmentin 875-125 Tablet] 1 each PO BID #14 tablet 06/27/17 Review of Systems - Review of Systems Able to Perform ROS?: Yes Comments:: 06/27/17 20:51 GENERAL/CONSTITUTIONAL: No fever or chills. No weakness. HEAD, EYES, EARS, NOSE AND THROAT: No change in vision. No ear pain or discharge. No sore throat. CARDIOVASCULAR: No chest pain or shortness of breath. RESPIRATORY: No cough, wheezing, or hemoptysis. GASTROINTESTINAL: No nausea, vomiting, diarrhea or constipation. GENITOURINARY: No dysuria, frequency, or change in urination. MUSCULOSKELETAL: No joint or muscle swelling or pain. No neck or back pain. SKIN: No rash NEUROLOGIC: No headache, vertigo, loss of consciousness, or change in strength/ sensation. ENDOCRINE: No increased thirst. No abnormal weight change. HEMATOLOGIC/LYMPHATIC: No anemia, easy bleeding, or history of blood clots. ALLERGIC/IMMUNOLOGIC: No hives or skin allergy. All Other Systems: Reviewed and Negative <Nato Ball - Last Filed: 06/27/17 20:51> *Physical Exam - Vital Signs Last Vital Signs Temp Pulse Resp BP Pulse Ox 98.0 F 100 H 16 119/77 100 06/27/17 19:27 06/27/17 19:27 06/27/17 19:27 06/27/17 19:27 06/27/17 19:27 <Roxanna Velarde - Last Filed: 06/27/17 20:45> - Vital Signs Last Vital Signs Temp Pulse Resp BP Pulse Ox 98.0 F 100 H 16 119/77 100 06/27/17 19:27 06/27/17 19:27 06/27/17 19:27 06/27/17 19:27 06/27/17 19:27 - Physical Exam Comments: 06/27/17 20:51 GENERAL: Awake, alert, and fully oriented, in no acute distress HEAD: No signs of trauma EYES: PERRLA, EOMI, sclera anicteric, conjunctiva clear ENT: Auricles normal inspection, hearing grossly normal, nares patent, oropharynx clear without exudates. Moist mucosa NECK: Normal ROM, supple, no lymphadenopathy, JVD, or masses LUNGS: Breath sounds equal, clear to auscultation bilaterally. No wheezes, and no crackles HEART: Regular rate and rhythm, normal S1 and S2, no murmurs, rubs or gallops ABDOMEN: +Lower abdomen C section wound 2.5 inches of right side slightly open with yellow discharge. Soft, normoactive bowel sounds. No guarding, no rebound. No masses EXTREMITIES: Normal range of motion, no edema. No clubbing or cyanosis. No cords, erythema, or tenderness NEUROLOGICAL: Cranial nerves II through XII grossly intact. Normal speech, normal gait SKIN: Warm, Dry, normal turgor, no rashes or lesions noted. <Nato Ball - Last Filed: 06/27/17 20:51> *DC/Admit/Observation/Transfer - Discharge Dispostion Admit: No <Roxanna Velarde - Last Filed: 06/27/17 20:45> - Attestations Scribe Attestion: 06/27/17 20:51 Documentation prepared by Nato Ball, acting as curator medical museum for Roxanna Velarde MD/DO. <Nato Ball - Last Filed: 06/27/17 20:51> Diagnosis at time of Disposition: section wound complication - Discharge Dispostion Disposition: HOME Condition at time of disposition: Stable - Prescriptions Prescriptions: Amoxicillin/Potassium Clav [Augmentin 875-125 Tablet] 1 each PO BID #14 tablet - Patient Instructions Printed Discharge Instructions: How to Care for a Surgical Wound
[2017-06-27] MEDS ORDERED: AMOX TR/POT CLAV 875MG/125MG TABLETS (FP) PO ONE ×2 (20:44→20:53)
== END 2017-06-27 21:03 | disposition home or self-care (01) ==
LOC: JER 19:24
DX: O99.89 Other specified diseases and conditions complicating pregnancy, childbirth and the puerperium (principal); O90.0 Disruption of cesarean delivery wound
CPT/HCPCS: 87070; 87186; 87205; 99281-25

== ENCOUNTER 2019-12-11 14:41 | Emergency (ER) | payer OTHER ==
[2019-12-11] MEDS ORDERED: SODIUM CHLORIDE 0.9% 500 ML INFUS.BAG IV ONE (14:45)
[2019-12-11] MEDS ORDERED: ACETAMINOPHEN 500 MG TABLET (FP) PO ONE (14:45)
--- NOTE | 2019-12-11 14:45 | PDOC ---
Rapid Medical Evaluation Time Seen by Provider: 12/11/19 14:42 Medical Evaluation: Allergies Allergy/AdvReac Type Severity Reaction Status Date / Time No Known Allergies Allergy Verified 06/27/17 19:29 12/11/19 14:42 I performed a brief in-person evaluation of this patient. Pt is a 24 y/o female who presents with complaint of dysuria, frequency, urgency and hematuria for the last 3 days. She states she began to have R back pain today. She denies any fevers. H/o asthma Pertinent physical exam findings: uncomfortable with crying in triage, no CVA tenderness on the R I have ordered the following: labs, ua, will defer imaging orders to treating provider Patient to proceed to ED for further evaluation. Discharge Disposition - Diagnosis Dysuria - Referrals - Patient Instructions - Post Discharge Activity
[2019-12-11 14:46] VITALS: BP 144/63; PULSE 98; TEMP 97; BMI 30.2
[2019-12-11 15:21] LABS: BASO % 1.1 % (0-2.0); EOS % 1.1 % (0-4.5); HEMATOCRIT 40.9 % (32.4-45.2); HEMOGLOBIN 13.3 GM/dL (10.7-15.3); LYMPH % 31.5 % (8-40); MCH 29.1 pg (25.7-33.7); MCHC 32.5 g/dl (32.0-36.0); MEAN CELL VOLUME 89.4 fl (80-96); MEAN PLT VOLUME 9.2 fl (7.5-11.1); MONO % 7.3 % (3.8-10.2); PLATELET COUNT 305 K/MM3 (134-434); RBC 4.57 M/mm3 (3.60-5.2); RDW 13.6 % (11.6-15.6); WHITE BLOOD COUNT 8.6 K/mm3 (4.0-10.0)
[2019-12-11] MEDS ORDERED: KETOROLAC TROMETHAMINE 30 MG/1 ML VIAL IVPUSH ONE (15:33)
[2019-12-11] MEDS ORDERED: CEFTRIAXONE 1 GM in DEXTROSE 5%-WATER - 50 ML IVPB ONE (15:33)
[2019-12-11 15:34] LABS: ALBUMIN 3.7 g/dl (3.4-5.0); BILIRUBIN,TOTAL 0.6 mg/dL (0.2-1); BLOOD UREA NITROGEN 8.8 mg/dL (7-18); CREATININE 0.8 mg/dL (0.55-1.3); POTASSIUM 5.8 mmol/L (3.5-5.1); TOT PROT 7.9 g/dl (6.4-8.2)
--- NOTE | 2019-12-11 15:42 | PDOC ---
History of Present Illness - General History Source: Patient - History of Present Illness Timing/Duration: reports: other Quality: reports: moderate <MarisolSabra - Last Filed: 12/11/19 17:04> <Cate Hawk - Last Filed: 12/12/19 09:25> - General Chief Complaint: Pain Stated Complaint: PAIN Time Seen by Provider: 12/11/19 14:42 Past History - Medical History Anemia: No Asthma: Yes (albuterol prn) Cancer: No Cardiac Disorders: No CVA: No COPD: No DVT: No Dementia: No Diabetes: No Dialysis: No GI Disorders: No Disorders: No HTN: No Hypercholesterolemia: No Kidney Stones: No Liver Disease: No Psychiatric Problems: No Seizures: No Thyroid Disease: Yes (hyperthyroid no meds) Lung CA: No - Reproductive History (#): 1 Para: 0 Cervical CA: No Dysfunctional Uterine Bleeding: No Ectopic : No Endometrial CA: No Polycystic Ovaries: No Therapeutic (s) & number: No Tubal Ligation: No Spontaneous : 0 - Immunization History Immunization Up to Date: Yes - Psycho-Social/Smoking History Smoking Status: No Smoking History: Never smoked Have you smoked in the past 12 months: No Number of Cigarettes Smoked Daily: 0 - Substance Abuse Hx (Audit-C & DAST Scrn) How often the patient has a drink containing alcohol: Never Score: In Men: 4 or > Positive; In Women: 3 or > Positive: 0 Screen Result (Pos requires Nsg. Audit-10AR): Negative <Sabra Damon - Last Filed: 12/11/19 17:04> <Cate Hawk - Last Filed: 12/12/19 09:25> - Medical History Allergies/Adverse Reactions: Allergies Allergy/AdvReac Type Severity Reaction Status Date / Time No Known Allergies Allergy Verified 12/11/19 14:46 Home Medications: Ambulatory Orders Ibuprofen [Motrin -] 800 mg PO QID #28 tablet 12/11/19 Sulfamethoxazole/Trimethoprim [Bactrim Ds Tablet] 1 each PO BID #20 tablet 12/11/19 Review of Systems - Review of Systems Constitutional: No: Chills, Fever ABD/GI: No: Nausea, Vomiting, Abdominal cramping : Yes: Dysuria, Frequency, Flank Pain, Hematuria <Ena DamonBrendanAmparo - Last Filed: 12/11/19 17:04> *Physical Exam - Vital Signs Last Vital Signs Temp Pulse Resp BP Pulse Ox 97 F L 98 H 18 144/63 99 12/11/19 14:43 12/11/19 14:43 12/11/19 14:43 12/11/19 14:43 12/11/19 14:43 - Physical Exam General Appearance: Yes: Appropriately Dressed. No: Apparent Distress HEENT: positive: Normal Voice Neck: positive: Supple Gastrointestinal/Abdominal: positive: Normal Bowel Sounds, Soft. negative: Tender, Distended, Guarding, Rebound Musculoskeletal: positive: CVA Tenderness (R) Integumentary: positive: Dry, Warm Neurologic: positive: Fully Oriented, Alert, Normal Mood/Affect <Ena DamonBrendanAmparo - Last Filed: 12/11/19 17:04> - Vital Signs Last Vital Signs Temp Pulse Resp BP Pulse Ox 97 F L 98 H 18 144/63 99 12/11/19 14:43 12/11/19 14:43 12/11/19 14:43 12/11/19 14:43 12/11/19 14:43 <CarineCate Levi - Last Filed: 12/12/19 09:25> ED Treatment Course - LABORATORY CBC & Chemistry Diagram: 12/11/19 15:05 12/11/19 15:05 - ADDITIONAL ORDERS Additional order review: Laboratory Results 12/11/19 15:05 Sodium 136 Potassium 5.8 H Chloride 105 Carbon Dioxide 26 Anion Gap 6 L BUN 8.8 Creatinine 0.8 Est GFR (CKD-EPI)AfAm 119.60 Est GFR (CKD-EPI)NonAf 103.19 Random Glucose 81 Calcium 9.0 Total Bilirubin 0.6 AST 39 H ALT 31 Alkaline Phosphatase 74 Total Protein 7.9 Albumin 3.7 12/11/19 15:05 RBC 4.57 MCV 89.4 MCHC 32.5 RDW 13.6 MPV 9.2 Neutrophils % 59.0 Lymphocytes % 31.5 D Monocytes % 7.3 Eosinophils % 1.1 Basophils % 1.1 D <LudlowEnaGet - Last Filed: 12/11/19 17:04> - LABORATORY CBC & Chemistry Diagram: 12/11/19 15:05 12/11/19 15:05 - ADDITIONAL ORDERS Additional order review: Laboratory Results 12/11/19 12/11/19 16:30 15:05 Sodium 136 Potassium 5.8 H Chloride 105 Carbon Dioxide 26 Anion Gap 6 L BUN 8.8 Creatinine 0.8 Est GFR (CKD-EPI)AfAm 119.60 Est GFR (CKD-EPI)NonAf 103.19 Random Glucose 81 Calcium 9.0 Total Bilirubin 0.6 AST 39 H ALT 31 Alkaline Phosphatase 74 Total Protein 7.9 Albumin 3.7 Urine Color Yellow Urine Appearance Clear Urine pH 8.0 D Ur Specific [place] 1.015 Urine Protein 1+ H Urine Glucose (UA) Negative Urine Ketones 1+ H Urine Blood 2+ H Urine Nitrite Negative Urine Bilirubin Negative Urine Urobilinogen 1.0 Ur Leukocyte Esterase 2+ H Urine WBC (Auto) 666 Urine RBC (Auto) 89 Urine Casts (Auto) 9 U Epithel Cells (Auto) 9 Urine Bacteria (Auto) 1976 Urine HCG, Qual Negative 12/11/19 15:05 RBC 4.57 MCV 89.4 MCHC 32.5 RDW 13.6 MPV 9.2 Neutrophils % 59.0 Lymphocytes % 31.5 D Monocytes % 7.3 Eosinophils % 1.1 Basophils % 1.1 D - Medications Given in the ED: ED Medications Discontinued Medications Generic Name Dose Route Start Last Admin Trade Name Parth PRN Reason Stop Dose Admin Acetaminophen 1,000 mg 12/11/19 14:45 12/11/19 16:28 Tylenol - PO 12/11/19 14:46 Not Given ONCE ONE Ceftriaxone Sodium 1 gm/ 50 mls @ 100 mls/hr 12/11/19 15:33 12/11/19 16:28 Dextrose IVPB 12/11/19 16:02 100 mls/hr ONCE ONE Administration Ketorolac Tromethamine 30 mg 12/11/19 15:33 12/11/19 16:28 Toradol Injection - IVPUSH 12/11/19 15:34 30 mg ONCE ONE Administration Sodium Chloride 1,000 ml 12/11/19 14:45 12/11/19 15:00 Normal Saline - IV 12/11/19 14:46 1,000 ml ONCE ONE Administration <Cate Hawk - Last Filed: 12/12/19 09:25> Medical Decision Making - Medical Decision Making 07/12/20 15:37 24 yo F, h/o asthma, here w/ sudden onset R flank pain this am. Has been having dysuria w/ hematuria and freq x 6 days. No n/v/f/c. No h/o similar episode. No h/o renal stones See exam Pyelo suspected, no h/o renal stones, no ttp over mcburneys or RUQ No n/v/f/c Stable w/ ? R CVAT -pain control -IV ceftriaxone (no sensitivity on record here) -labs -reassess 12/11/19 15:41 12/11/19 16:54 UA w/ 2+ LE and >1900 bebeto, ucx sent. On reassessment, pt reports feeling sig better and states pain has since resolved. No n/v/f/c at this time. Dc w/ abx with return precautions as d/w pt and mother <Sabra Damon - Last Filed: 12/11/19 17:04> - Medical Decision Making The patient was seen and evaluated in conjunction with midlevel provider under my direct supervision, ancillary studies were reviewed. I agree with the plan as outlined with_AKIKO Damon. HPI, workup/dispo as outlined. VS reviewed, wnl. Vital Signs Temp Pulse Resp BP Pulse Ox 97 F L 98 H 18 144/63 99 12/11/19 14:43 12/11/19 14:43 12/11/19 14:43 12/11/19 14:43 12/11/19 14:43 Urinalysis with signs of infection, could be early Roberto, IV antibiotic ceftriaxone administered, continued bactrim oral antibiotics for 14 days, follow-up urine culture,anticipate discharge, pcp followup, return precautions 12/11/19 16:50 12/11/19 16:50 12/12/19 09:24 <Cate Hawk - Last Filed: 12/12/19 09:25> Discharge - Discharge Information Problems reviewed: Yes <Sabra Damon - Last Filed: 12/11/19 17:04> - Discharge Information Problems reviewed: Yes - Admission No <Cate Hawk - Last Filed: 12/12/19 09:25> - Discharge Information Clinical Impression/Diagnosis: Dysuria, Pyelonephritis Condition: Improved Disposition: HOME - Additional Discharge Information Prescriptions: Sulfamethoxazole/Trimethoprim [Bactrim Ds Tablet] 1 each PO BID #20 tablet Ibuprofen [Motrin -] 800 mg PO QID #28 tablet - Follow up/Referral Referrals: Keke Hoang MD [Primary Care Provider] - - Patient Discharge Instructions Patient Printed Discharge Instructions: DI for Kidney Infection Additional Instructions: You were treated for a kidney infection Take medications ad directed and return for any persistent/worsening symptoms as discussed Otherwise, please follow up with your PMD - Post Discharge Activity
[2019-12-11] MEDS ORDERED: CEFTRIAXONE 1 GM/50 ML BAG ONE (15:55)
[2019-12-11] MEDS ORDERED: KETOROLAC TROMETHAMINE 30 MG/1 ML VIAL ONE (15:55)
[2019-12-11 16:40] LABS: EPI CELLS 9 /uL (0-25.1); HCG,QUALITATIVE URINE Negative; HYALINE CASTS 9 /uL (0-3.1); URINE APPEARANCE CLEAR; URINE BACTERIA 1976 /uL (0-1359); URINE BILIRUBIN NEGATIVE (NEGATIVE); URINE COLOR YELLOW; URINE GLUCOSE (UA) NEGATIVE (NEGATIVE); URINE KETONE 1+ (NEGATIVE); URINE LEUK ESTERASE 2+ (NEGATIVE); URINE NITRITE NEGATIVE (NEGATIVE); URINE PROTEIN 1+ (NEGATIVE); URINE RBC 89 /uL (0-23.9); URINE WBC 666 /uL (0-25.8)
== END 2019-12-11 17:27 | disposition home or self-care (01) ==
LOC: JER 14:41
PROC: 3E03329 Introduction of Other Anti-infective into Peripheral Vein, Percutaneous Approach (ICD-10-PCS; principal; 2019-12-11)
PROC: 3E033GC Introduction of Other Therapeutic Substance into Peripheral Vein, Percutaneous Approach (ICD-10-PCS; 2019-12-11)
DX: R30.0 Dysuria (principal)
CPT/HCPCS: 36415; 80053; 81003; 84703; 85025; 87086; 87186; 99285-25

== ENCOUNTER 2021-09-10 11:33 | Emergency (ER) | payer OTHER ==
[2021-09-10 11:53] VITALS: BP 136/86; PULSE 94; TEMP 98.6; BMI 25.6
[2021-09-10] MEDS ORDERED: KETOROLAC TROMETHAMINE 30 MG/1 ML VIAL IM ONE (13:20)
[2021-09-10] MEDS ORDERED: KETOROLAC TROMETHAMINE 30 MG/1 ML VIAL ONE (13:42)
[2021-09-10 14:42] LABS: HCG,QUALITATIVE URINE Negative
[2021-09-10 14:43] LABS: EPI CELLS >36 /uL (0-25.1); HYALINE CASTS 2 /uL (0-3.1); URINE APPEARANCE CLOUDY; URINE BACTERIA 1285 /uL (0-1359); URINE BILIRUBIN NEGATIVE (NEGATIVE); URINE COLOR YELLOW; URINE GLUCOSE (UA) NEGATIVE (NEGATIVE); URINE KETONE NEGATIVE (NEGATIVE); URINE LEUK ESTERASE 3+ (NEGATIVE); URINE NITRITE NEGATIVE (NEGATIVE); URINE PROTEIN NEGATIVE (NEGATIVE); URINE RBC 39 /uL (0-23.9); URINE WBC 216 /uL (0-25.8)
== END 2021-09-10 15:28 | disposition home or self-care (01) ==
LOC: JER 11:33
PROC: 3E023GC Introduction of Other Therapeutic Substance into Muscle, Percutaneous Approach (ICD-10-PCS; principal; 2021-09-10)
DX: R10.33 Periumbilical pain (principal)
CPT/HCPCS: 81003; 84703; 87086; 99284-25

== ENCOUNTER 2022-07-17 15:41 | Emergency (ER) | payer OTHER ==
[2022-07-17 15:50] VITALS: TEMP 98.2; BMI 27.4
[2022-07-17] MEDS ORDERED: SODIUM CHLORIDE 1,000 ML IV STA (16:16)
[2022-07-17] MEDS ORDERED: ACETAMINOPHEN 1000 MG/100 ML BAG IVPB ONE (16:16)
[2022-07-17] MEDS ORDERED: ACETAMINOPHEN INJECTION 100 ML IVPB ONE (16:27)
[2022-07-17] MEDS ORDERED: MAG HYDROX/AL HYDROX/SIMETH -MYLANTA- ORAL SUSPENSION PO ONE (16:36)
[2022-07-17] MEDS ORDERED: FAMOTIDINE 20 MG/50 ML IVPB 20 MG/50 ML MG IVPB ONE ×2 (16:36→16:39)
[2022-07-17] MEDS ORDERED: MAG HYDROX/AL HYDROX/SIMETH 30 ML UNIT-DOSE CUP ONE (16:39)
[2022-07-17 18:03] LABS: CHLORIDE 107 mmol/L (98-107); SODIUM 137 mmol/L (136-145)
[2022-07-17 18:05] LABS: CALCIUM 8.7 mg/dL (8.5-10.1)
[2022-07-17 18:06] LABS: ALBUMIN 3.6 g/dl (3.4-5.0); ANION GAP 6 MMOL/L (8-16); BLOOD UREA NITROGEN 7.4 mg/dL (7-18); CO2 23 mmol/L (21-32); GLUCOSE,RANDOM 81 mg/dL (74-106); MAGNESIUM 2.2 mg/dL (1.8-2.4)
[2022-07-17 18:09] LABS: CREATININE 0.6 mg/dL (0.55-1.3); SGOT/AST 38 U/L (15-37); SGPT/ALT 57 U/L (13-61)
[2022-07-17 18:11] LABS: TOT PROT 7.4 g/dl (6.4-8.2)
[2022-07-17 18:12] LABS: BASO % 0.7 % (0-2.0); EOS % 1.8 % (0-4.5); HEMATOCRIT 37.4 % (32.4-45.2); HEMOGLOBIN 12.3 GM/dL (10.7-15.3); LYMPH % 40.8 % (8-40); MCH 28.9 pg (25.7-33.7); MCHC 32.8 g/dl (32.0-36.0); MEAN CELL VOLUME 88.2 fl (80-96); MEAN PLT VOLUME 9.1 fl (7.5-11.1); MONO % 8.3 % (3.8-10.2); NEUT % 48.4 % (42.8-82.8); PLATELET COUNT 359 10^3/uL (134-434); RBC 4.24 M/mm3 (3.60-5.2); RDW 14.5 % (11.6-15.6); WHITE BLOOD COUNT 5.9 K/mm3 (4.0-10.0)
[2022-07-17 18:20] LABS: ALK PHOS 72 U/L (45-117); BILIRUBIN,TOTAL 0.4 mg/dL (0.2-1)
[2022-07-17 18:43] VITALS: BP 127/82; PULSE 83; RESP 20
== END 2022-07-17 18:44 | disposition home or self-care (01) ==
LOC: JER 15:41
PROC: 3E0333Z Introduction of Anti-inflammatory into Peripheral Vein, Percutaneous Approach (ICD-10-PCS; principal; 2022-07-17)
PROC: 3E033GC Introduction of Other Therapeutic Substance into Peripheral Vein, Percutaneous Approach (ICD-10-PCS; 2022-07-17)
PROC: 3E0337Z Introduction of Electrolytic and Water Balance Substance into Peripheral Vein, Percutaneous Approach (ICD-10-PCS; 2022-07-17)
DX: R07.89 Other chest pain (principal)
CPT/HCPCS: 0241U-QW; 36415; 71046-TC-FY; 80053; 83735; 84484; 84703; 85025; 93005; 93010; 99285-25

== ENCOUNTER 2023-03-03 15:06 | Emergency (ER) | payer OTHER ==
[2023-03-03 15:49] VITALS: BP 122/86; PULSE 93; RESP 18; TEMP 98.2; BMI 29.0
== END 2023-03-03 17:47 | disposition home or self-care (01) ==
LOC: JER 15:06 → JERFT 15:06
DX: S00.83XA Contusion of other part of head, initial encounter (principal); K13.0 Diseases of lips; Y04.2XXA Assault by strike against or bumped into by another person, initial encounter
CPT/HCPCS: 99282-25

== ENCOUNTER 2024-01-08 11:24 | Emergency (ER) | payer OTHER ==
[2024-01-08 11:33] VITALS: BP 147/93; PULSE 106; RESP 19; TEMP 98.1; BMI 30.2
[2024-01-08] MEDS ORDERED: ACETAMINOPHEN INJECTION 100 ML IVPB ONE (12:00)
[2024-01-08] MEDS: ACETAMINOPHEN 1000 MG/100 ML BAG IVPB ONE (12:19)
[2024-01-08] MEDS: SODIUM CHLORIDE 0.9% 500 ML INFUS.BAG IV ONE (12:19)
[2024-01-08 12:22] LABS: BASO % 0.7 % (0-2.0); EOS % 1.2 % (0-4.5); HEMATOCRIT 38.2 % (32.4-45.2); HEMOGLOBIN 12.7 GM/dL (10.7-15.3); LYMPH % 37.6 % (8-40); MCH 28.6 pg (25.7-33.7); MCHC 33.2 g/dl (32.0-36.0); MEAN CELL VOLUME 86.1 fl (80-96); MEAN PLT VOLUME 8.7 fl (7.5-11.1); MONO % 5.6 % (3.8-10.2); NEUT % 54.9 % (42.8-82.8); PLATELET COUNT 412 10^3/uL (134-434); RBC 4.44 M/mm3 (3.60-5.2); RDW 14.4 % (11.6-15.6)
[2024-01-08 12:42] LABS: POTASSIUM 3.8 mmol/L (3.5-5.1)
[2024-01-08 12:44] LABS: ALBUMIN 3.7 g/dl (3.4-5.0); CALCIUM 9.4 mg/dL (8.5-10.1)
[2024-01-08 12:45] LABS: BLOOD UREA NITROGEN 6.3 mg/dL (7-18)
[2024-01-08 12:48] LABS: CREATININE 0.6 mg/dL (0.55-1.3)
[2024-01-08 12:50] LABS: BILIRUBIN,TOTAL 0.3 mg/dL (0.2-1); TOT PROT 7.8 g/dl (6.4-8.2)
[2024-01-08 13:19] LABS: EPI CELLS >36 /uL (0-25.1); HYALINE CASTS 0 /uL (0-3.1); URINE APPEARANCE CLEAR; URINE BACTERIA 361 /uL (0-1359); URINE BILIRUBIN NEGATIVE (NEGATIVE); URINE COLOR YELLOW; URINE GLUCOSE (UA) NEGATIVE (NEGATIVE); URINE KETONE NEGATIVE (NEGATIVE); URINE LEUK ESTERASE TRACE (NEGATIVE); URINE NITRITE NEGATIVE (NEGATIVE); URINE PROTEIN NEGATIVE (NEGATIVE); URINE RBC 27 /uL (0-23.9); URINE UROBILINOGEN 0.2 mg/dL (0.2-1.0); URINE WBC 63 /uL (0-25.8)
== END 2024-01-08 15:39 | disposition home or self-care (01) ==
LOC: JER 11:24
PROC: 3E033NZ Introduction of Analgesics, Hypnotics, Sedatives into Peripheral Vein, Percutaneous Approach (ICD-10-PCS; principal; 2024-01-08)
DX: N39.0 Urinary tract infection, site not specified (principal)
CPT/HCPCS: 36415; 74176-TC; 80053; 81003; 83690; 84703; 85025; 87086; 99284-25; J0131